=== PATIENT | male | born 1965 | race Hispanic/Latino ===

== ENCOUNTER 2020-07-10 09:21 | Inpatient (IN) | payer OTHER, SELFPAY ==
[2020-07-10 09:41] LABS: BASOPHILS % (AUTO) 0.4 % (0.0-5.0); EOSINOPHILS % (AUTO) 2.1 % (0.0-8.0); HEMATOCRIT 47.2 % (42-54); LYMPHOCYTES % (AUTO) 21.9 % (21.0-51.0); MEAN CORPUSCULAR HEMOGLOBIN 29.3 pg (27.0-33.0); MEAN CORPUSCULAR HGB CONC 32.8 g/dL (32.0-36.0); MEAN CORPUSCULAR VOLUME 89.2 fL (79-99); MONOCYTES % (AUTO) 6.8 % (3.0-13.0); NEUTROPHILS % (AUTO) 68.3 % (40.0-77.0); PLATELET COUNT (AUTO) 233 K/uL (130-400); RED BLOOD CELL COUNT(AUTO) 5.29 MIL/uL (4.50-6.20); RED CELL DISTRIBUTION WIDTH 13.6 % (11.0-15.5); WHITE BLOOD COUNT (AUTO) 9.5 K/uL (4.8-10.8)
[2020-07-10 09:53] LABS: ALBUMIN 3.4 g/dL (3.5-5.0); BILIRUBIN,TOTAL 0.3 mg/dL (0.2-1.0); TOTAL PROTEIN, SERUM 7.4 g/dL (6.0-8.3)
[2020-07-10 09:55] LABS: INR 0.98 (0.85-1.15); PROTHROMBIN TIME 10.7 SEC (9.6-11.6)
[2020-07-10 09:56] LABS: PARTIAL THROMBOPLASTIN TIME 26.5 SEC (26.3-35.5)
[2020-07-10 10:04] LABS: ABG BASE EXCESS 2.6 mmol/L (-2.0-3.0); ABG HCO3 29.5 mmol/L (21.0-28.0); ABG OXYGEN SATURATION 91.5 % (95.0-99.0); ABG PCO2 55 mmHg (35-48)
[2020-07-10 10:13] LABS: B-TYPE NATRIURETIC PEPTIDE 39 pg/mL (0-100)
[2020-07-10] MEDS ORDERED: SOLU-MEDROL 125MG VIAL ONE (11:04)
[2020-07-10] MEDS ORDERED: LEVOFLOXACIN 500 MG/D5W 100 ML 100 ML ONE (11:04)
[2020-07-10] MEDS ORDERED: IPRATROPIUM/ALBUTEROL SULFATE 3 ML SOLUTION IH ONE (11:13)
[2020-07-10] MEDS ORDERED: ACETAMINOPHEN 325 MG TAB PO PRN ×2 (11:30)
[2020-07-10] MEDS ORDERED: LACTULOSE 20 GM/30 ML UDCUP PO PRN (11:30)
[2020-07-10] MEDS ORDERED: ONDANSETRON 4MG INJ IV PRN (11:30)
[2020-07-10] MEDS: SOLU-MEDROL 125MG VIAL IV SCH ×2 (11:30→19:30)
[2020-07-10] MEDS ORDERED: IPRATROPIUM/ALBUTEROL SULFATE 3 ML SOLUTION IH PRN (11:30)
[2020-07-10 11:38] LABS: APPEARANCE,URINE Clear (CLEAR); BILIRUBIN,URINE Negative (NEGATIVE); COLOR,URINE Yellow (YELLOW); GLUCOSE, URINE (UA) Negative (NEGATIVE); KETONES,URINE Negative (NEGATIVE); LEUKOCYTE ESTERASE ,URINE Negative (NEGATIVE); NITRATE,URINE Negative (NEGATIVE); OCCULT BLOOD,URINE Negative (NEGATIVE); PROTEIN,URINE Negative (NEGATIVE); UROBILINOGEN,URINE 0.2 mg/dL (0.2-1.0)
[2020-07-10 11:42] LABS: HEMOGLOBIN A1C 6.3 % (4.0-6.0)
[2020-07-10] MEDS: LEVOFLOXACIN 500 MG/D5W 100 ML 100 ML IV SCH (15:45)
[2020-07-10] MEDS ORDERED: SOLU-MEDROL 40MG VIAL ONE (17:38)
[2020-07-10] MEDS ORDERED: FUROSEMIDE 100MG VIAL IVP STA (18:36)
[2020-07-10] MEDS ORDERED: FUROSEMIDE 20MG VIAL ONE (18:47)
[2020-07-10] MEDS: BUDESONIDE 0.5 MG/2 ML INH IH SCH (20:59)
[2020-07-10] MEDS: FAMOTIDINE 20MG TAB PO SCH (21:00)
[2020-07-10] MEDS: IPRATROPIUM/ALBUTEROL SULFATE 3 ML SOLUTION IH SCH (23:43)
[2020-07-11] MEDS: SOLU-MEDROL 125MG VIAL IV SCH ×2 (03:30→11:51)
[2020-07-11] MEDS ORDERED: SOLU-MEDROL 40MG VIAL ONE (04:27)
[2020-07-11 06:00] VITALS: BP 147/83
[2020-07-11 06:21] LABS: BASOPHILS % (AUTO) 0.1 % (0.0-5.0); HEMATOCRIT 48.8 % (42-54); LYMPHOCYTES % (AUTO) 5.7 % (21.0-51.0); MEAN CORPUSCULAR HEMOGLOBIN 28.6 pg (27.0-33.0); MEAN CORPUSCULAR HGB CONC 32.2 g/dL (32.0-36.0); MEAN CORPUSCULAR VOLUME 89.1 fL (79-99); MONOCYTES % (AUTO) 2.4 % (3.0-13.0); NEUTROPHILS % (AUTO) 91.3 % (40.0-77.0); PLATELET COUNT (AUTO) 270 K/uL (130-400); RED BLOOD CELL COUNT(AUTO) 5.48 MIL/uL (4.50-6.20); RED CELL DISTRIBUTION WIDTH 13.2 % (11.0-15.5); WHITE BLOOD COUNT (AUTO) 17.2 K/uL (4.8-10.8)
[2020-07-11 06:34] LABS: CREATININE 1.1 mg/dL (0.5-1.5); POTASSIUM 4.2 mmol/L (3.5-5.1)
[2020-07-11] MEDS: IPRATROPIUM/ALBUTEROL SULFATE 3 ML SOLUTION IH SCH ×3 (06:34→18:29)
[2020-07-11] MEDS: BUDESONIDE 0.5 MG/2 ML INH IH SCH (06:35)
[2020-07-11] MEDS: INSULIN HUMULIN R 100 UNIT/ML 3ML SQ SCH ×4 (06:42→21:11)
[2020-07-11 07:00] VITALS: BP 128/57
[2020-07-11 07:04] LABS: B-TYPE NATRIURETIC PEPTIDE 20 pg/mL (0-100)
[2020-07-11] MEDS: FAMOTIDINE 20MG TAB PO SCH ×2 (08:53→21:03)
[2020-07-11] MEDS: ENOXAPARIN SODIUM 40 MG/0.4 ML SYRINGE SQ SCH (08:54)
[2020-07-11 11:00] VITALS: BP 117/68
[2020-07-11 15:00] VITALS: BP 128/68
[2020-07-11] MEDS: LEVOFLOXACIN 500 MG/D5W 100 ML 100 ML IV SCH (16:09)
[2020-07-11] MEDS ORDERED: BUDESONIDE 0.5 MG/2 ML INH IH PRN (17:15)
[2020-07-11 20:51] VITALS: BP 139/72
[2020-07-12] VITALS: BP 119/48
[2020-07-12 04:00] VITALS: BP 172/84
[2020-07-12 04:49] LABS: BASOPHILS % (AUTO) 0.1 % (0.0-5.0); HEMATOCRIT 48.1 % (42-54); LYMPHOCYTES % (AUTO) 6.3 % (21.0-51.0); MEAN CORPUSCULAR HEMOGLOBIN 28.6 pg (27.0-33.0); MEAN CORPUSCULAR HGB CONC 31.8 g/dL (32.0-36.0); MEAN CORPUSCULAR VOLUME 89.9 fL (79-99); MONOCYTES % (AUTO) 4.8 % (3.0-13.0); NEUTROPHILS % (AUTO) 88.2 % (40.0-77.0); PLATELET COUNT (AUTO) 263 K/uL (130-400); RED BLOOD CELL COUNT(AUTO) 5.35 MIL/uL (4.50-6.20); RED CELL DISTRIBUTION WIDTH 13.4 % (11.0-15.5); WHITE BLOOD COUNT (AUTO) 20.6 K/uL (4.8-10.8)
[2020-07-12 05:19] LABS: POTASSIUM 4.6 mmol/L (3.5-5.1)
[2020-07-12] MEDS: INSULIN HUMULIN R 100 UNIT/ML 3ML SQ SCH ×4 (06:13→19:52)
[2020-07-12 08:00] VITALS: BP 141/102
[2020-07-12] MEDS: FAMOTIDINE 20MG TAB PO SCH ×2 (08:33→19:53)
[2020-07-12] MEDS: PREDNISONE 20 MG TABLET PO SCH (08:33)
[2020-07-12] MEDS: ENOXAPARIN SODIUM 40 MG/0.4 ML SYRINGE SQ SCH (08:34)
[2020-07-12 11:59] VITALS: BP 124/63
[2020-07-12 16:00] VITALS: BP 136/86
[2020-07-12] MEDS: LEVOFLOXACIN 500 MG/D5W 100 ML 100 ML IV SCH (16:00)
[2020-07-12 20:16] VITALS: BP 99/57
[2020-07-13 00:07] VITALS: BP 102/51
[2020-07-13 04:14] VITALS: BP 144/88
[2020-07-13 05:01] LABS: BASOPHILS % (AUTO) 0.3 % (0.0-5.0); EOSINOPHILS % (AUTO) 0.1 % (0.0-8.0); HEMATOCRIT 48.8 % (42-54); LYMPHOCYTES % (AUTO) 24.1 % (21.0-51.0); MEAN CORPUSCULAR HEMOGLOBIN 29.2 pg (27.0-33.0); MEAN CORPUSCULAR HGB CONC 31.6 g/dL (32.0-36.0); MEAN CORPUSCULAR VOLUME 92.4 fL (79-99); MONOCYTES % (AUTO) 7.7 % (3.0-13.0); NEUTROPHILS % (AUTO) 67.1 % (40.0-77.0); PLATELET COUNT (AUTO) 219 K/uL (130-400); RED BLOOD CELL COUNT(AUTO) 5.28 MIL/uL (4.50-6.20); RED CELL DISTRIBUTION WIDTH 13.6 % (11.0-15.5); WHITE BLOOD COUNT (AUTO) 13.1 K/uL (4.8-10.8)
[2020-07-13 05:09] LABS: POTASSIUM 4.1 mmol/L (3.5-5.1)
[2020-07-13] MEDS: INSULIN HUMULIN R 100 UNIT/ML 3ML SQ SCH ×2 (05:11→11:30)
[2020-07-13] MEDS: FAMOTIDINE 20MG TAB PO SCH (07:55)
[2020-07-13] MEDS: PREDNISONE 20 MG TABLET PO SCH (07:55)
[2020-07-13 08:00] VITALS: BP 135/81
[2020-07-13] MEDS: ENOXAPARIN SODIUM 40 MG/0.4 ML SYRINGE SQ SCH (08:06)
[2020-07-13] MEDS ORDERED: LEVOFLOXACIN 500 MG TABLET PO SCH (09:00)
[2020-07-13] MEDS ORDERED: PRED20B PO (09:36)
[2020-07-13] MEDS ORDERED: BUDE0.5A3 IH (09:36)
[2020-07-13] MEDS ORDERED: LEVO500T90 PO (09:36)
[2020-07-13] MEDS ORDERED: BUDE10.2 IH (09:44)
[2020-07-13] MEDS ORDERED: TIOT4MIS2 IH (09:44)
[2020-07-13 12:00] VITALS: BP 117/72
[2020-07-13] MEDS ORDERED: IPRATROPIUM/ALBUTEROL SULFATE 3 ML SOLUTION IH SCH (12:00)
[2020-07-13 16:00] VITALS: BP 132/71
[2020-07-13] MEDS ORDERED: BUDESONIDE 0.5 MG/2 ML INH IH SCH (18:00)
== END 2020-07-13 16:27 | disposition home or self-care (01) | DRG 190 ==
LOC: EDH 09:21 → OBSVTOIN 09:22 → EDHIP 09:22 → 4CH 07-11 05:40
PROVIDERS: ADMIT Internal Medicine; ATTEND Internal Medicine
PROC: 5A09357 Assistance with Respiratory Ventilation, Less than 24 Consecutive Hours, Continuous Positive Airway Pressure (ICD-10-PCS; principal; 2020-07-11)
PROC: 5A09357 Assistance with Respiratory Ventilation, Less than 24 Consecutive Hours, Continuous Positive Airway Pressure (ICD-10-PCS; 2020-07-12)
PROC: 5A09357 Assistance with Respiratory Ventilation, Less than 24 Consecutive Hours, Continuous Positive Airway Pressure (ICD-10-PCS; 2020-07-13)
DX: J44.1 Chronic obstructive pulmonary disease with (acute) exacerbation (principal); J18.9 Pneumonia, unspecified organism; E66.2 Morbid (severe) obesity with alveolar hypoventilation; E87.2 Acidosis; J98.11 Atelectasis; R06.03 Acute respiratory distress; R09.02 Hypoxemia; E11.9 Type 2 diabetes mellitus without complications; I27.81 Cor pulmonale (chronic); F17.210 Nicotine dependence, cigarettes, uncomplicated; J44.0 Chronic obstructive pulmonary disease with (acute) lower respiratory infection; Y95 Nosocomial condition; Z99.81 Dependence on supplemental oxygen; Z20.822 Contact with and (suspected) exposure to COVID-19; Z88.0 Allergy status to penicillin
CPT/HCPCS: 36415; 36600; 71045; 80048; 80053; 81003; 82550; 82803; 82948; 83036; 83605; 83880; 84145; 84484; 85025; 85610; 85730; 86140; 87040; 87071; 87205; 87426; 87804; 93005; 93306; 93356; 94640; 94660; 94664; 94760; G0378; J1650; J1815; J1940; J1956; J2920; J2930; U0003

== ENCOUNTER 2020-08-22 13:30 | Emergency (ER) | payer SELFPAY ==
[~2020-08-22] VITALS: Ht 177.8 cm; Wt 142.9 kg
[~2020-08-22 13:30] MED LIST: BUDE0.5A3 IH; LEVO500T89 PO; PRED20B PO; TIOT4MIS2 IH
[2020-08-22 13:32] VITALS: BP 107/66
[2020-08-22] MEDS ORDERED: ACETAMINOPHEN 325 MG TAB PO ONE (14:00)
[2020-08-22] MEDS ORDERED: SOLU-MEDROL 125MG/2ML VIAL IVP SCH (14:15)
[2020-08-22 14:56] LABS: BASOPHILS % (AUTO) 0.4 % (0.0-5.0); EOSINOPHILS % (AUTO) 1.3 % (0.0-8.0); LYMPHOCYTES % (AUTO) 25.9 % (21.0-51.0); MEAN CORPUSCULAR HEMOGLOBIN 29.2 pg (27.0-33.0); MEAN CORPUSCULAR HGB CONC 31.5 g/dL (32.0-36.0); MEAN CORPUSCULAR VOLUME 92.6 fL (79-99); MONOCYTES % (AUTO) 8.3 % (3.0-13.0); NEUTROPHILS % (AUTO) 63.6 % (40.0-77.0); PLATELET COUNT (AUTO) 234 K/uL (130-400); RED BLOOD CELL COUNT(AUTO) 4.97 MIL/uL (4.50-6.20); RED CELL DISTRIBUTION WIDTH 14.2 % (11.0-15.5); WHITE BLOOD COUNT (AUTO) 10.9 K/uL (4.8-10.8)
[2020-08-22 15:04] LABS: AMPHET/METH SCREEN,URINE NEGATIVE (NEGATIVE); BARBITURATE SCREEN, URINE NEGATIVE (NEGATIVE); BENZODIAZEPINES SCREEN,URINE NEGATIVE (NEGATIVE); CANNABINOID SCREEN,URINE NEGATIVE (NEGATIVE); COCAINE SCREEN,URINE POSITIVE (NEGATIVE); OPIATE SCREEN,URINE NEGATIVE (NEGATIVE); PHENCYCLIDINE SCREEN,URINE NEGATIVE (NEGATIVE)
[2020-08-22 15:07] LABS: CARBON DIOXIDE 27 mmol/L (21-32); CHLORIDE 106 mmol/L (101-111); GLOMERULAR FILTR. RATE CALC 82 mL/min (>60); GLUCOSE,RANDOM 105 mg/dL (70-105); INR 1.02 (0.85-1.15); POTASSIUM 3.9 mmol/L (3.5-5.1); PROTHROMBIN TIME 11.1 SEC (9.6-11.6); SODIUM SERUM 143 mmol/L (136-145); UREA NITROGEN, BLOOD 15 mg/dL (7-18)
[2020-08-22 15:29] LABS: ALANINE AMINOTRANSFERASE 34 U/L (12-78); ALBUMIN 3.6 g/dL (3.5-5.0); ASPARTATE AMINOTRANSFERASE 20 U/L (10-37); BILIRUBIN,TOTAL 0.3 mg/dL (0.2-1.0); CREATINE KINASE, TOTAL 115 U/L (21-232); MYOGLOBIN 33 ng/mL (10-92); TOTAL PROTEIN, SERUM 7.5 g/dL (6.0-8.3); TROPONIN I < 0.04 ng/mL (0.00-0.06)
[2020-08-22] MEDS ORDERED: CODE10LI PO (16:41)
[2020-08-22] MEDS ORDERED: BUDE10.2 IH (16:41)
[2020-08-22] MEDS ORDERED: PSEU-221 PO (16:41)
[2020-08-22 16:53] VITALS: BP 112/74
[2020-08-22] MEDS ORDERED: LEVO750T46 PO (16:53)
== END 2020-08-22 17:01 | disposition home or self-care (01) ==
LOC: EDH 13:30 → MERGE 13:30 → EDH 17:01
DX: J44.1 Chronic obstructive pulmonary disease with (acute) exacerbation (principal); Z20.822 Contact with and (suspected) exposure to COVID-19; E66.01 Morbid (severe) obesity due to excess calories; F14.10 Cocaine abuse, uncomplicated; Z88.0 Allergy status to penicillin; F17.210 Nicotine dependence, cigarettes, uncomplicated; Z79.51 Long term (current) use of inhaled steroids; Z79.52 Long term (current) use of systemic steroids; Z68.42 Body mass index [BMI] 45.0-49.9, adult
CPT/HCPCS: 36415; 71045; 73030; 80053; 80305; 82550; 83735; 83874; 83880; 84484; 85025; 85378; 85610; 87635; 87804 ×2; 87880; 93005; 96374; 99285; C9803; J2930

== ENCOUNTER 2020-09-05 09:23 | Emergency (ER) | payer OTHER, SELFPAY ==
[~2020-09-05] VITALS: Ht 177.8 cm; Wt 142.9 kg
[~2020-09-05 09:23] MED LIST changes: +BUDE10.2 IH; +CODE10LI PO; +LEVO750T46 PO; +PSEU-221 PO
[2020-09-05 09:25] VITALS: BP 130/58
[2020-09-05 10:30] LABS: BASOPHILS % (AUTO) 0.4 % (0.0-5.0); EOSINOPHILS % (AUTO) 1.8 % (0.0-8.0); HEMATOCRIT 45.9 % (42-54); LYMPHOCYTES % (AUTO) 21.7 % (21.0-51.0); MEAN CORPUSCULAR HEMOGLOBIN 28.9 pg (27.0-33.0); MEAN CORPUSCULAR HGB CONC 31.4 g/dL (32.0-36.0); MONOCYTES % (AUTO) 7.5 % (3.0-13.0); NEUTROPHILS % (AUTO) 68.1 % (40.0-77.0); PLATELET COUNT (AUTO) 222 K/uL (130-400); RED BLOOD CELL COUNT(AUTO) 4.99 MIL/uL (4.50-6.20); RED CELL DISTRIBUTION WIDTH 14.2 % (11.0-15.5)
[2020-09-05] MEDS ORDERED: IPRATROPIUM/ALBUTEROL SULFATE 3 ML SOLUTION IH SCH (10:30)
[2020-09-05] MEDS ORDERED: SOLU-MEDROL 125MG VIAL IVP SCH (10:30)
[2020-09-05 10:51] LABS: ALANINE AMINOTRANSFERASE 35 U/L (12-78); ALBUMIN 3.5 g/dL (3.5-5.0); ASPARTATE AMINOTRANSFERASE 19 U/L (10-37); BILIRUBIN,TOTAL 0.2 mg/dL (0.2-1.0); CARBON DIOXIDE 31 mmol/L (21-32); CHLORIDE 106 mmol/L (101-111); CREATINE KINASE, TOTAL 75 U/L (21-232); CREATININE 0.8 mg/dL (0.5-1.5); GLOMERULAR FILTR. RATE CALC 106 mL/min (>60); GLUCOSE,RANDOM 96 mg/dL (70-105); MYOGLOBIN 25 ng/mL (10-92); POTASSIUM 4.2 mmol/L (3.5-5.1); SODIUM SERUM 143 mmol/L (136-145); TOTAL PROTEIN, SERUM 7.3 g/dL (6.0-8.3); TROPONIN I < 0.04 ng/mL (0.00-0.06); UREA NITROGEN, BLOOD 15 mg/dL (7-18)
[2020-09-05 11:00] VITALS: BP 113/72
[2020-09-05 11:03] LABS: B-TYPE NATRIURETIC PEPTIDE 30 pg/mL (0-100)
[2020-09-05 11:06] LABS: ABG BASE EXCESS -0.7 mmol/L (-2.0-3.0); ABG HCO3 25.9 mmol/L (21.0-28.0); ABG OXYGEN SATURATION 89.6 % (95.0-99.0); ABG PCO2 50 mmHg (35-48)
[2020-09-05] MEDS ORDERED: IPRATROPIUM/ALBUTEROL SULFATE 3 ML SOLUTION IH ONE ×2 (12:45→13:45)
[2020-09-05] MEDS ORDERED: PRED20TA3 PO (12:58)
[2020-09-05] MEDS ORDERED: ALBU2.5V2 IH (12:58)
[2020-09-05 13:17] VITALS: BP 112/78
== END 2020-09-05 13:19 | disposition home or self-care (01) ==
LOC: EDH 09:23
DX: J44.1 Chronic obstructive pulmonary disease with (acute) exacerbation (principal); Z20.822 Contact with and (suspected) exposure to COVID-19; F17.210 Nicotine dependence, cigarettes, uncomplicated; Z88.0 Allergy status to penicillin; Z79.899 Other long term (current) drug therapy; Z79.52 Long term (current) use of systemic steroids; Z79.51 Long term (current) use of inhaled steroids
CPT/HCPCS: 36415; 36600; 71045; 80053; 82550; 82803; 83874; 83880; 84484; 85025; 87635; 93005; 94640 ×2; 96374; 99285; C9803; J2930

== ENCOUNTER 2020-11-29 12:20 | Inpatient (IN) | payer OTHER ==
[2020-11-29] VITALS (8 sets, daily range): BP systolic 107–151; BP diastolic 66–91
[~2020-11-29] VITALS: Ht 177.8 cm; Wt 149.3 kg
[~2020-11-29 12:20] MED LIST changes: +ALBU2.5V2 IH; +PRED20TA3 PO
[2020-11-29 12:33] LABS: ABG BASE EXCESS 3.2 mmol/L (-2.0-3.0); ABG HCO3 30.6 mmol/L (21.0-28.0); ABG PCO2 58 mmHg (35-48)
[2020-11-29 12:42] LABS: BASOPHILS % (AUTO) 0.4 % (0.0-5.0); EOSINOPHILS % (AUTO) 1.5 % (0.0-8.0); HEMATOCRIT 48.6 % (42-54); LYMPHOCYTES % (AUTO) 17.1 % (21.0-51.0); MEAN CORPUSCULAR HEMOGLOBIN 28.7 pg (27.0-33.0); MEAN CORPUSCULAR HGB CONC 31.1 g/dL (32.0-36.0); MEAN CORPUSCULAR VOLUME 92.4 fL (79-99); MONOCYTES % (AUTO) 8.3 % (3.0-13.0); NEUTROPHILS % (AUTO) 72.3 % (40.0-77.0); PLATELET COUNT (AUTO) 220 K/uL (130-400); RED BLOOD CELL COUNT(AUTO) 5.26 MIL/uL (4.50-6.20); RED CELL DISTRIBUTION WIDTH 13.8 % (11.0-15.5); WHITE BLOOD COUNT (AUTO) 11.7 K/uL (4.8-10.8)
[2020-11-29 12:59] LABS: B-TYPE NATRIURETIC PEPTIDE 13 pg/mL (0-100)
[2020-11-29] MEDS ORDERED: IPRATROPIUM/ALBUTEROL SULFATE 3 ML SOLUTION IH ONE (13:00)
[2020-11-29] MEDS ORDERED: ALBUTEROL 0.083% 2.5 MG/3 ML INH IH ONE (13:00)
[2020-11-29] MEDS ORDERED: SOLU-MEDROL 125MG VIAL IVP ONE (13:00)
[2020-11-29 13:10] LABS: ALBUMIN 3.4 g/dL (3.5-5.0); BILIRUBIN,TOTAL 0.3 mg/dL (0.2-1.0); CREATININE 0.8 mg/dL (0.5-1.5); POTASSIUM 4.1 mmol/L (3.5-5.1); TOTAL PROTEIN, SERUM 7.4 g/dL (6.0-8.3)
[2020-11-29] MEDS ORDERED: ACETAMINOPHEN 325 MG TAB PO PRN (14:00)
[2020-11-29] MEDS ORDERED: ONDANSETRON 4MG INJ IV PRN (14:00)
[2020-11-29] MEDS ORDERED: HYDRALAZINE 20MG/ML VIAL IV PRN (14:00)
[2020-11-29] MEDS ORDERED: LACTULOSE 20 GM/30 ML UDCUP PO PRN (14:00)
[2020-11-29] MEDS ORDERED: CEFTRIAXONE 1G VIAL IVP SCH (14:00)
[2020-11-29] MEDS ORDERED: 0.9%NACL 50ML 50 ML IV ONE (14:29)
[2020-11-29] MEDS ORDERED: LEVOFLOXACIN 500 MG/D5W 100 ML 100 ML IV SCH (14:30)
[2020-11-29 15:31] LABS: ABG BASE EXCESS 1.8 mmol/L (-2.0-3.0); ABG HCO3 31.5 mmol/L (21.0-28.0); ABG PCO2 72 mmHg (35-48)
[2020-11-29] MEDS ORDERED: INSULIN HUMULIN R 100 UNIT/ML 3ML SQ SCH (17:00)
[2020-11-29 17:27] LABS: ALCOHOL, BLOOD < 3 mg/dL (0-10); SALICYLATE 2.9 mg/dL (2.8-20.0)
[2020-11-29] MEDS: NICOTINE 21 MG/ 24 HR PATCH TD SCH (17:45)
[2020-11-29] MEDS ORDERED: SOLU-MEDROL 125MG VIAL IV SCH (18:00)
[2020-11-29] MEDS ORDERED: ALBUTEROL 0.083% 2.5 MG/3 ML INH IH SCH (18:00)
[2020-11-29 18:39] LABS: APPEARANCE,URINE Clear (CLEAR); BILIRUBIN,URINE Negative (NEGATIVE); COLOR,URINE Yellow (YELLOW); GLUCOSE, URINE (UA) Negative (NEGATIVE); KETONES,URINE Negative (NEGATIVE); LEUKOCYTE ESTERASE ,URINE Trace (NEGATIVE); NITRATE,URINE Negative (NEGATIVE); OCCULT BLOOD,URINE Negative (NEGATIVE); PROTEIN,URINE POS 1+ mg/dL (NEGATIVE)
[2020-11-29 18:46] LABS: AMPHET/METH SCREEN,URINE NEGATIVE (NEGATIVE); BARBITURATE SCREEN, URINE NEGATIVE (NEGATIVE); BENZODIAZEPINES SCREEN,URINE NEGATIVE (NEGATIVE); CANNABINOID SCREEN,URINE NEGATIVE (NEGATIVE); COCAINE SCREEN,URINE POSITIVE (NEGATIVE); OPIATE SCREEN,URINE NEGATIVE (NEGATIVE); PHENCYCLIDINE SCREEN,URINE NEGATIVE (NEGATIVE)
[2020-11-29 18:59] LABS: BACTERIA,URINE None Seen /HPF (None Seen); RBC,URINE None Seen /HPF (0-1); SQUAMOUS EPITHELIAL CELL,UR None Seen /HPF (0-2); WBC,URINE 0-1 /HPF (0-1)
[2020-11-29] MEDS: BUDESONIDE 0.5 MG/2 ML INH IH SCH (18:59)
[2020-11-29] MEDS: IPRATROPIUM/ALBUTEROL SULFATE 3 ML SOLUTION IH SCH ×2 (19:06→22:20)
[2020-11-29] MEDS: SOLU-MEDROL 40MG VIAL IVP SCH (19:30)
[2020-11-29] MEDS: INSULIN HUMULIN R 100 UNIT/ML 3ML SQ SCH (20:24)
[2020-11-29] MEDS: FAMOTIDINE 20MG VIAL IV SCH (20:40)
[2020-11-29] MEDS: FUROSEMIDE 20MG VIAL IV SCH (20:40)
[2020-11-29] MEDS: LACTULOSE 20 GM/30 ML UDCUP PO SCH (22:30)
[2020-11-30 01:42] VITALS: BP 131/82
[2020-11-30 03:36] LABS: ABG BASE EXCESS 2.1 mmol/L (-2.0-3.0); ABG HCO3 28.2 mmol/L (21.0-28.0); ABG OXYGEN SATURATION 91.8 % (95.0-99.0); ABG PCO2 50 mmHg (35-48)
[2020-11-30] MEDS: SOLU-MEDROL 40MG VIAL IVP SCH (06:50)
[2020-11-30] MEDS: IPRATROPIUM/ALBUTEROL SULFATE 3 ML SOLUTION IH SCH ×3 (07:30→18:54)
[2020-11-30] MEDS: INSULIN HUMULIN R 100 UNIT/ML 3ML SQ SCH ×4 (07:30→21:00)
[2020-11-30] MEDS: BUDESONIDE 0.5 MG/2 ML INH IH SCH ×2 (07:30→20:02)
[2020-11-30] MEDS: RIFAXIMIN 550 MG TABLET PO SCH ×3 (07:56→22:12)
[2020-11-30 08:02] VITALS: BP 127/75
[2020-11-30 08:25] LABS: BASOPHILS % (AUTO) 0.1 % (0.0-5.0); HEMATOCRIT 49.4 % (42-54); LYMPHOCYTES % (AUTO) 6.9 % (21.0-51.0); MEAN CORPUSCULAR HEMOGLOBIN 28.9 pg (27.0-33.0); MEAN CORPUSCULAR VOLUME 90.3 fL (79-99); NEUTROPHILS % (AUTO) 89.5 % (40.0-77.0); PLATELET COUNT (AUTO) 246 K/uL (130-400); RED BLOOD CELL COUNT(AUTO) 5.47 MIL/uL (4.50-6.20); RED CELL DISTRIBUTION WIDTH 13.4 % (11.0-15.5); WHITE BLOOD COUNT (AUTO) 14.4 K/uL (4.8-10.8)
[2020-11-30 08:33] LABS: INR 1.01 (0.85-1.15)
[2020-11-30 08:35] LABS: PARTIAL THROMBOPLASTIN TIME 24.5 SEC (26.3-35.5)
[2020-11-30 08:37] LABS: CREATININE 0.9 mg/dL (0.5-1.5); MAGNESIUM 2.1 mg/dL (1.80-2.40); POTASSIUM 4.3 mmol/L (3.5-5.1)
[2020-11-30] MEDS: LACTULOSE 20 GM/30 ML UDCUP PO SCH ×2 (09:00→22:12)
[2020-11-30] MEDS: FAMOTIDINE 20MG VIAL IV SCH ×2 (09:40→22:12)
[2020-11-30] MEDS: FUROSEMIDE 20MG VIAL IV SCH (09:40)
[2020-11-30] MEDS: NICOTINE 21 MG/ 24 HR PATCH TD SCH (09:41)
[2020-11-30] MEDS: ENOXAPARIN SODIUM 40 MG/0.4 ML SYRINGE SQ SCH (09:42)
[2020-11-30 11:00] VITALS: BP 138/86
[2020-11-30] MEDS ORDERED: FOLIC ACID 1 MG TABLET PO SCH (13:30)
[2020-11-30] MEDS ORDERED: THIAMINE HCL 100 MG TABLET PO SCH (13:30)
[2020-11-30] MEDS: THIAMINE HCL 100 MG TABLET PO SCH (13:45)
[2020-11-30] MEDS: FOLIC ACID 1 MG TABLET PO SCH (13:45)
[2020-11-30] MEDS: LEVOFLOXACIN 500 MG TABLET PO SCH (16:38)
[2020-11-30] MEDS ORDERED: CLOPIDOGREL 300MG TAB ONE (16:47)
[2020-11-30] MEDS ORDERED: HEPARIN 5,000 UNIT VIAL ONE ×2 (16:47→16:48)
[2020-11-30] MEDS ORDERED: NITROGLYCERIN 1GM OINT 1 INCH/1GM TD ONE (16:47)
[2020-11-30 22:37] VITALS: BP 121/76
[2020-12-01] VITALS (10 sets, daily range): BP systolic 108–151; BP diastolic 58–87
[2020-12-01] MEDS: IPRATROPIUM/ALBUTEROL SULFATE 3 ML SOLUTION IH SCH ×5 (00:34→23:37)
[2020-12-01] MEDS: BUDESONIDE 0.5 MG/2 ML INH IH SCH ×2 (06:00→19:21)
[2020-12-01] MEDS: INSULIN HUMULIN R 100 UNIT/ML 3ML SQ SCH ×4 (06:50→20:41)
[2020-12-01 07:19] LABS: BASOPHILS % (AUTO) 0.3 % (0.0-5.0); EOSINOPHILS % (AUTO) 0.1 % (0.0-8.0); HEMATOCRIT 51.4 % (42-54); LYMPHOCYTES % (AUTO) 19.6 % (21.0-51.0); MEAN CORPUSCULAR HEMOGLOBIN 28.6 pg (27.0-33.0); MEAN CORPUSCULAR HGB CONC 30.9 g/dL (32.0-36.0); MEAN CORPUSCULAR VOLUME 92.6 fL (79-99); MONOCYTES % (AUTO) 5.3 % (3.0-13.0); NEUTROPHILS % (AUTO) 74.4 % (40.0-77.0); PLATELET COUNT (AUTO) 238 K/uL (130-400); RED BLOOD CELL COUNT(AUTO) 5.55 MIL/uL (4.50-6.20); RED CELL DISTRIBUTION WIDTH 13.7 % (11.0-15.5); WHITE BLOOD COUNT (AUTO) 14.3 K/uL (4.8-10.8)
[2020-12-01 07:27] LABS: MAGNESIUM 2.3 mg/dL (1.80-2.40); POTASSIUM 4.1 mmol/L (3.5-5.1)
[2020-12-01] MEDS: FOLIC ACID 1 MG TABLET PO SCH (10:13)
[2020-12-01] MEDS: RIFAXIMIN 550 MG TABLET PO SCH ×2 (10:13→20:38)
[2020-12-01] MEDS: NICOTINE 21 MG/ 24 HR PATCH TD SCH (10:13)
[2020-12-01] MEDS: THIAMINE HCL 100 MG TABLET PO SCH (10:13)
[2020-12-01] MEDS: ENOXAPARIN SODIUM 40 MG/0.4 ML SYRINGE SQ SCH (10:14)
[2020-12-01] MEDS: FAMOTIDINE 20MG VIAL IV SCH ×2 (10:14→20:38)
[2020-12-01] MEDS: LACTULOSE 20 GM/30 ML UDCUP PO SCH ×2 (10:14→20:38)
[2020-12-01] MEDS: LEVOFLOXACIN 500 MG TABLET PO SCH (10:14)
[2020-12-01] MEDS: TRAMADOL HCL 50 MG TABLET PO PRN ×2 (10:45→20:40)
[2020-12-01] MEDS ORDERED: TRAMADOL HCL 50 MG TABLET PO PRN (11:00)
[2020-12-02 03:50] VITALS: BP 117/68
[2020-12-02 06:16] LABS: BASOPHILS % (AUTO) 0.4 % (0.0-5.0); HEMATOCRIT 46.6 % (42-54); LYMPHOCYTES % (AUTO) 21.6 % (21.0-51.0); MEAN CORPUSCULAR HEMOGLOBIN 29.1 pg (27.0-33.0); MEAN CORPUSCULAR HGB CONC 31.5 g/dL (32.0-36.0); MEAN CORPUSCULAR VOLUME 92.1 fL (79-99); MONOCYTES % (AUTO) 7.4 % (3.0-13.0); NEUTROPHILS % (AUTO) 69.2 % (40.0-77.0); PLATELET COUNT (AUTO) 222 K/uL (130-400); RED BLOOD CELL COUNT(AUTO) 5.06 MIL/uL (4.50-6.20); RED CELL DISTRIBUTION WIDTH 14.2 % (11.0-15.5); WHITE BLOOD COUNT (AUTO) 10.4 K/uL (4.8-10.8)
[2020-12-02 06:48] LABS: POTASSIUM 4.1 mmol/L (3.5-5.1)
[2020-12-02] MEDS: INSULIN HUMULIN R 100 UNIT/ML 3ML SQ SCH ×3 (07:04→16:30)
[2020-12-02] MEDS: BUDESONIDE 0.5 MG/2 ML INH IH SCH (07:19)
[2020-12-02] MEDS: IPRATROPIUM/ALBUTEROL SULFATE 3 ML SOLUTION IH SCH ×2 (07:19→12:01)
[2020-12-02 07:45] VITALS: BP 92/63
[2020-12-02] MEDS: LACTULOSE 20 GM/30 ML UDCUP PO SCH (09:11)
[2020-12-02] MEDS: ENOXAPARIN SODIUM 40 MG/0.4 ML SYRINGE SQ SCH (09:11)
[2020-12-02] MEDS: FOLIC ACID 1 MG TABLET PO SCH (09:12)
[2020-12-02] MEDS: THIAMINE HCL 100 MG TABLET PO SCH (09:12)
[2020-12-02] MEDS: LEVOFLOXACIN 500 MG TABLET PO SCH (09:12)
[2020-12-02] MEDS: FAMOTIDINE 20MG VIAL IV SCH (09:12)
[2020-12-02] MEDS: NICOTINE 21 MG/ 24 HR PATCH TD SCH (09:12)
[2020-12-02] MEDS: RIFAXIMIN 550 MG TABLET PO SCH (09:16)
[2020-12-02 11:35] VITALS: BP 145/87
[2020-12-02 15:35] VITALS: BP 110/55
[2020-12-02] MEDS ORDERED: FLUT1BLS3 IH (15:59)
[2020-12-02] MEDS ORDERED: ALBU8.5H8 IH (15:59)
[2020-12-02] MEDS ORDERED: LEVO750T46 PO (17:42)
[2020-12-02] MEDS ORDERED: ALBU1.252 IH (17:42)
== END 2020-12-02 18:37 | disposition home or self-care (01) | DRG 140 ==
LOC: EDH 12:20 → EDHIP 13:49 → 4CH 12-01 09:06
PROVIDERS: ADMIT Internal Medicine; ATTEND Internal Medicine
PROC: 5A09357 Assistance with Respiratory Ventilation, Less than 24 Consecutive Hours, Continuous Positive Airway Pressure (ICD-10-PCS; principal; 2020-11-29)
PROC: 5A09357 Assistance with Respiratory Ventilation, Less than 24 Consecutive Hours, Continuous Positive Airway Pressure (ICD-10-PCS; 2020-11-30)
PROC: 5A09357 Assistance with Respiratory Ventilation, Less than 24 Consecutive Hours, Continuous Positive Airway Pressure (ICD-10-PCS; 2020-12-01)
PROC: 5A09357 Assistance with Respiratory Ventilation, Less than 24 Consecutive Hours, Continuous Positive Airway Pressure (ICD-10-PCS; 2020-12-02)
DX: J44.1 Chronic obstructive pulmonary disease with (acute) exacerbation (principal); J96.21 Acute and chronic respiratory failure with hypoxia; G93.40 Encephalopathy, unspecified; I27.81 Cor pulmonale (chronic); Z68.42 Body mass index [BMI] 45.0-49.9, adult; E66.2 Morbid (severe) obesity with alveolar hypoventilation; T85.618A Breakdown (mechanical) of other specified internal prosthetic devices, implants and grafts, initial encounter; J98.11 Atelectasis; Z20.822 Contact with and (suspected) exposure to COVID-19; J96.22 Acute and chronic respiratory failure with hypercapnia; F17.210 Nicotine dependence, cigarettes, uncomplicated; Z91.19 Patient's noncompliance with other medical treatment and regimen; Z88.0 Allergy status to penicillin; Z83.3 Family history of diabetes mellitus; Z82.49 Family history of ischemic heart disease and other diseases of the circulatory system; Y82.8 Other medical devices associated with adverse incidents; Y92.89 Other specified places as the place of occurrence of the external cause; Y83.8 Other surgical procedures as the cause of abnormal reaction of the patient, or of later complication, without mention of misadventure at the time of the procedure
CPT/HCPCS: 36415; 36600; 71045; 73030; 73620; 76705; 80048; 80053; 80305; 81001; 82140; 82435; 82803; 82947; 82948; 83605; 83735; 83880; 84132; 84145; 84295; 84484; 85018; 85025; 85378; 85610; 85730; 86140; 87040; 87635; 87804; 87880; 93005; 94640; 94660; 94664; C9803; G0378; G0481; J0360; J0696; J1644; J1650; J1815; J1940; J1956; J2920; J2930; J3490

== ENCOUNTER 2021-06-14 11:57 | Emergency (ER) | payer OTHER ==
[~2021-06-14] VITALS: Ht 177.8 cm; Wt 142.9 kg
[~2021-06-14 11:57] MED LIST changes: +ALBU1.252 IH; -ALBU2.5V2 IH; +ALBU8.5H8 IH; -BUDE0.5A3 IH; -BUDE10.2 IH; -CODE10LI PO; +FLUT1BLS3 IH; -LEVO500T89 PO; -PRED20B PO; -PRED20TA3 PO; -PSEU-221 PO; -TIOT4MIS2 IH
[2021-06-14 12:24] LABS: BASOPHILS % (AUTO) 0.3 % (0.0-5.0); EOSINOPHILS % (AUTO) 1.1 % (0.0-8.0); HEMATOCRIT 48.4 % (42-54); LYMPHOCYTES % (AUTO) 18.9 % (21.0-51.0); MEAN CORPUSCULAR HEMOGLOBIN 28.8 pg (27.0-33.0); NEUTROPHILS % (AUTO) 72.4 % (40.0-77.0); PLATELET COUNT (AUTO) 264 K/uL (130-400); RED BLOOD CELL COUNT(AUTO) 5.38 MIL/uL (4.50-6.20); RED CELL DISTRIBUTION WIDTH 13.3 % (11.0-15.5); WHITE BLOOD COUNT (AUTO) 11.8 K/uL (4.8-10.8)
[2021-06-14] MEDS ORDERED: IPRATROPIUM/ALBUTEROL SULFATE 3 ML SOLUTION IH ONE (12:30)
[2021-06-14 12:40] LABS: POTASSIUM 3.8 mmol/L (3.5-5.1)
[2021-06-14 12:43] LABS: B-TYPE NATRIURETIC PEPTIDE 37 pg/mL (0-100)
[2021-06-14 12:47] LABS: ALBUMIN 3.3 g/dL (3.5-5.0); BILIRUBIN,TOTAL 0.3 mg/dL (0.2-1.0)
[2021-06-14] MEDS ORDERED: PRED20TA3 PO (13:55)
[2021-06-14] MEDS ORDERED: DOXY-336 PO (13:55)
[2021-06-14 13:56] VITALS: BP 120/71
[2021-06-14] MEDS ORDERED: SOLU-MEDROL 125MG VIAL IVP SCH (14:00)
[2021-06-14] MEDS ORDERED: DOXYCYCLINE HYCLATE 100 MG TABLET PO SCH (14:00)
== END 2021-06-14 14:31 | disposition home or self-care (01) ==
LOC: EDH 11:57
DX: J44.1 Chronic obstructive pulmonary disease with (acute) exacerbation (principal); Z20.822 Contact with and (suspected) exposure to COVID-19; F17.210 Nicotine dependence, cigarettes, uncomplicated; G47.30 Sleep apnea, unspecified; E66.9 Obesity, unspecified; Z88.0 Allergy status to penicillin; Z79.52 Long term (current) use of systemic steroids; Z68.42 Body mass index [BMI] 45.0-49.9, adult
CPT/HCPCS: 36415; 71045; 80053; 83880; 84484; 85025; 87635; 87804 ×2; 93005; 94640; 96374; 99285; C9803; J2930

== ENCOUNTER 2021-11-10 01:29 | Emergency (ER) | payer OTHER ==
[~2021-11-10] VITALS: Ht 177.8 cm; Wt 154.2 kg
[~2021-11-10 01:29] MED LIST changes: +DOXY-336 PO; -LEVO750T46 PO; +LEVO750T68 PO; +PRED20TA3 PO
[2021-11-10] MEDS ORDERED: DIPH,PERTUSS(ACELL),TET VAC/PF 0.5 ML VIAL IM ONE (02:00)
[2021-11-10] MEDS ORDERED: TETANUS/DIPHTHERIA TOXOID [ADULT] 0.5 ML VIAL IM ONE (02:14)
[2021-11-10] MEDS ORDERED: CLIN-141 PO (02:40)
[2021-11-10 03:00] VITALS: BP 132/58
== END 2021-11-10 03:32 | disposition home or self-care (01) ==
LOC: EDH 01:29
DX: S01.511A Laceration without foreign body of lip, initial encounter (principal); S40.011A Contusion of right shoulder, initial encounter; F41.9 Anxiety disorder, unspecified; F32.A Depression, unspecified; G47.30 Sleep apnea, unspecified; Z79.52 Long term (current) use of systemic steroids; Z88.0 Allergy status to penicillin; W06.XXXA Fall from bed, initial encounter; Y93.89 Activity, other specified; Y92.89 Other specified places as the place of occurrence of the external cause; Y99.8 Other external cause status
CPT/HCPCS: 12011; 73030; 90471; 90714; 90715

== ENCOUNTER 2022-01-29 11:05 | Emergency (ER) | payer OTHER ==
[~2022-01-29] VITALS: Ht 177.8 cm; Wt 142.9 kg
[~2022-01-29 11:05] MED LIST changes: +CLIN-141 PO; -DOXY-336 PO; +DOXY-469 PO
[2022-01-29] MEDS ORDERED: 0.9% NACL 500ML IV.SOLN 500 ML IV ONE (11:30)
[2022-01-29] MEDS ORDERED: IPRATROPIUM/ALBUTEROL SULFATE 3 ML SOLUTION IH ONE ×2 (11:30)
[2022-01-29 11:58] LABS: BASOPHILS % (AUTO) 0.5 % (0.0-5.0); EOSINOPHILS % (AUTO) 2.7 % (0.0-8.0); HEMATOCRIT 45.2 % (42-54); LYMPHOCYTES % (AUTO) 22.1 % (21.0-51.0); MEAN CORPUSCULAR HEMOGLOBIN 27.9 pg (27.0-33.0); MEAN CORPUSCULAR HGB CONC 31.9 g/dL (32.0-36.0); MEAN CORPUSCULAR VOLUME 87.6 fL (79-99); MONOCYTES % (AUTO) 5.7 % (3.0-13.0); NEUTROPHILS % (AUTO) 68.7 % (40.0-77.0); PLATELET COUNT (AUTO) 218 K/uL (130-400); RED BLOOD CELL COUNT(AUTO) 5.16 MIL/uL (4.50-6.20); RED CELL DISTRIBUTION WIDTH 13.5 % (11.0-15.5); WHITE BLOOD COUNT (AUTO) 7.9 K/uL (4.8-10.8)
[2022-01-29 12:09] LABS: CREATININE 0.9 mg/dL (0.5-1.5); POTASSIUM 4.3 mmol/L (3.5-5.1)
[2022-01-29 12:14] LABS: ALBUMIN 3.3 g/dL (3.5-5.0); TOTAL PROTEIN, SERUM 7.3 g/dL (6.0-8.3)
[2022-01-29 12:18] LABS: B-TYPE NATRIURETIC PEPTIDE 31 pg/mL (0-100)
[2022-01-29 12:42] LABS: APPEARANCE,URINE CLEAR (CLEAR); BILIRUBIN,URINE NEGATIVE (NEGATIVE); COLOR,URINE COLORLESS (YELLOW); GLUCOSE, URINE (UA) NEGATIVE (NEGATIVE); KETONES,URINE NEGATIVE (NEGATIVE); LEUKOCYTE ESTERASE ,URINE NEGATIVE Leu/uL (NEGATIVE); NITRATE,URINE NEGATIVE (NEGATIVE); OCCULT BLOOD,URINE NEGATIVE (NEGATIVE); PH,URINE 7.5 (5.0-8.0); PROTEIN,URINE NEGATIVE (NEGATIVE); UROBILINOGEN,URINE 0.2 mg/dL (0.2-1.0)
[2022-01-29] MEDS ORDERED: SOLU-MEDROL 125MG VIAL IVP ONE (13:00)
[2022-01-29 13:16] VITALS: BP 127/77
[2022-01-29] MEDS ORDERED: PRED20TA3 PO (14:00)
[2022-01-29] MEDS ORDERED: ACET-66 PO (14:00)
[2022-01-29] MEDS ORDERED: GUAIF10 PO (14:00)
[2022-01-29] MEDS ORDERED: ALBU90AE2 IH (14:00)
[2022-01-29] MEDS ORDERED: OSEL75 PO (14:00)
[2022-01-29] MEDS ORDERED: AUD IH (14:00)
== END 2022-01-29 14:07 | disposition home or self-care (01) ==
LOC: EDH 11:05
DX: J10.1 Influenza due to other identified influenza virus with other respiratory manifestations (principal); J44.1 Chronic obstructive pulmonary disease with (acute) exacerbation; Z20.822 Contact with and (suspected) exposure to COVID-19; G47.30 Sleep apnea, unspecified; Z79.52 Long term (current) use of systemic steroids; Z88.0 Allergy status to penicillin
CPT/HCPCS: 99285; 71045; 96374; 96361; 87635; 84484; 80053; 83880; 85025; 87804 ×2; 81003; 36415; 93005; 94640 ×2; C9803; J2930

== ENCOUNTER 2022-05-15 08:41 | Inpatient (IN) | payer MEDICAID, MEDICARE, OTHER ==
[~2022-05-15] VITALS: Ht 177.8 cm; Wt 146.3 kg
[~2022-05-15 08:41] MED LIST changes: -ALBU1.252 IH; +ALBU6.7H14 IH; -ALBU8.5H8 IH; +AZIT500T4 PO; -CLIN-141 PO; -DOXY-469 PO; +ESCI-8 PO; -FLUT1BLS3 IH; +FURO20TA4 PO; -LEVO750T68 PO; +LISI20TA24 PO; -PRED20TA3 PO
[2022-05-15 08:58] LABS: ABG BASE EXCESS -0.3 mmol/L (-2.0-3.0); ABG HCO3 26.3 mmol/L (21.0-28.0); ABG OXYGEN SATURATION 88.2 % (95.0-99.0); ABG PCO2 51 mmHg (35-48)
[2022-05-15 09:27] LABS: BASOPHILS % (AUTO) 0.4 % (0.0-5.0); HEMATOCRIT 47.2 % (42-54); LYMPHOCYTES % (AUTO) 18.9 % (21.0-51.0); MEAN CORPUSCULAR HGB CONC 31.6 g/dL (32.0-36.0); MEAN CORPUSCULAR VOLUME 88.7 fL (79-99); MONOCYTES % (AUTO) 7.8 % (3.0-13.0); NEUTROPHILS % (AUTO) 70.5 % (40.0-77.0); PLATELET COUNT (AUTO) 247 K/uL (130-400); RED BLOOD CELL COUNT(AUTO) 5.32 MIL/uL (4.50-6.20); RED CELL DISTRIBUTION WIDTH 14.4 % (11.0-15.5); WHITE BLOOD COUNT (AUTO) 10.1 K/uL (4.8-10.8)
[2022-05-15] MEDS ORDERED: SOLU-MEDROL 125MG VIAL IVP ONE (09:30)
[2022-05-15] MEDS ORDERED: IPRATROPIUM/ALBUTEROL SULFATE 3 ML SOLUTION IH ONE (09:30)
[2022-05-15] MEDS ORDERED: ALBUTEROL 0.042% 1.25MG/3ML IH ONE ×5 (09:36→23:20)
[2022-05-15] MEDS ORDERED: IPRATROPIUM 0.5 MG/2.5 ML INH IH ONE (09:36)
[2022-05-15 09:43] LABS: CREATININE 0.8 mg/dL (0.5-1.5); POTASSIUM 4.4 mmol/L (3.5-5.1)
[2022-05-15 09:47] LABS: ALBUMIN 3.5 g/dL (3.5-5.0); TOTAL PROTEIN, SERUM 7.5 g/dL (6.0-8.3)
[2022-05-15] MEDS ORDERED: IBUP-1493 PO (10:50)
[2022-05-15] MEDS ORDERED: ALBU90AE2 IH (10:50)
[2022-05-15] MEDS ORDERED: MODA200T48 PO (11:17)
[2022-05-15 17:24] VITALS: BP 129/78
[2022-05-15] MEDS: ALBUTEROL 0.083% 2.5 MG/3 ML INH IH SCH (18:00)
[2022-05-15] MEDS: IPRATROPIUM 0.5 MG/2.5 ML INH IH SCH ×2 (19:11→23:30)
[2022-05-15 19:12] VITALS: BP 134/85
[2022-05-15] MEDS ORDERED: PHARMACY COMMUNICATION MISC SCH (19:30)
[2022-05-15] MEDS ORDERED: FOLIC ACID 1 MG TABLET PO ONE (19:30)
[2022-05-15] MEDS ORDERED: PHARMACY COMMUNICATION MISC PRN (19:30)
[2022-05-15 19:55] LABS: ABG BASE EXCESS 2.4 mmol/L (-2.0-3.0); ABG HCO3 29.6 mmol/L (21.0-28.0); ABG OXYGEN SATURATION 95.8 % (95.0-99.0); ABG PCO2 56 mmHg (35-48)
[2022-05-15] MEDS: CEFTRIAXONE 1G VIAL IVP SCH (20:23)
[2022-05-15] MEDS: DOXYCYCLINE HYCLATE 100 MG TABLET PO SCH (20:23)
[2022-05-15] MEDS: FUROSEMIDE 20MG VIAL IV SCH (20:23)
[2022-05-15 20:43] LABS: AMPHET/METH SCREEN,URINE NEGATIVE (NEGATIVE); BARBITURATE SCREEN, URINE NEGATIVE (NEGATIVE); BENZODIAZEPINES SCREEN,URINE NEGATIVE (NEGATIVE); CANNABINOID SCREEN,URINE NEGATIVE (NEGATIVE); COCAINE SCREEN,URINE POSITIVE (NEGATIVE); OPIATE SCREEN,URINE NEGATIVE (NEGATIVE); PHENCYCLIDINE SCREEN,URINE NEGATIVE (NEGATIVE)
[2022-05-15] MEDS: CHLORDIAZEPOXIDE HCL 25 MG CAP PO PRN (22:24)
[2022-05-15 23:24] VITALS: BP 132/52
[2022-05-16] VITALS (9 sets, daily range): BP systolic 117–146; BP diastolic 63–90
[2022-05-16 04:01] LABS: BASOPHILS % (AUTO) 0.1 % (0.0-5.0); HEMATOCRIT 49.4 % (42-54); LYMPHOCYTES % (AUTO) 8.1 % (21.0-51.0); MEAN CORPUSCULAR HEMOGLOBIN 28.1 pg (27.0-33.0); MEAN CORPUSCULAR HGB CONC 30.4 g/dL (32.0-36.0); MEAN CORPUSCULAR VOLUME 92.5 fL (79-99); MONOCYTES % (AUTO) 5.5 % (3.0-13.0); NEUTROPHILS % (AUTO) 85.8 % (40.0-77.0); PLATELET COUNT (AUTO) 258 K/uL (130-400); RED BLOOD CELL COUNT(AUTO) 5.34 MIL/uL (4.50-6.20); RED CELL DISTRIBUTION WIDTH 13.9 % (11.0-15.5); WHITE BLOOD COUNT (AUTO) 14.9 K/uL (4.8-10.8)
[2022-05-16 04:07] LABS: HEMOGLOBIN A1C 5.8 % (4.0-6.0)
[2022-05-16 04:15] LABS: ALBUMIN 3.6 g/dL (3.5-5.0); CREATININE 0.8 mg/dL (0.5-1.5); PHOSPHORUS 5.1 mg/dL (2.5-4.9); POTASSIUM 4.4 mmol/L (3.5-5.1); TOTAL PROTEIN, SERUM 7.7 g/dL (6.0-8.3)
[2022-05-16 04:30] LABS: ABG BASE EXCESS 6.8 mmol/L (-2.0-3.0); ABG HCO3 36.8 mmol/L (21.0-28.0); ABG PCO2 80 mmHg (35-48)
[2022-05-16] MEDS: ALBUTEROL 0.083% 2.5 MG/3 ML INH IH SCH ×5 (06:00→23:54)
[2022-05-16] MEDS ORDERED: ALBUTEROL 0.042% 1.25MG/3ML IH ONE (06:19)
[2022-05-16] MEDS: IPRATROPIUM 0.5 MG/2.5 ML INH IH SCH ×4 (07:02→23:54)
[2022-05-16] MEDS: FUROSEMIDE 20MG VIAL IV SCH ×2 (07:38→19:18)
[2022-05-16] MEDS: SOLU-MEDROL 40MG VIAL IVP SCH ×2 (08:47→21:26)
[2022-05-16] MEDS: DOXYCYCLINE HYCLATE 100 MG TABLET PO SCH ×2 (08:48→21:26)
[2022-05-16] MEDS: FOLIC ACID 1 MG TABLET PO SCH (08:48)
[2022-05-16] MEDS: THIAMINE HCL 100 MG TABLET PO SCH (08:48)
[2022-05-16 12:12] LABS: ABG BASE EXCESS 7.6 mmol/L (-2.0-3.0); ABG HCO3 36.8 mmol/L (21.0-28.0); ABG OXYGEN SATURATION 91.2 % (95.0-99.0); ABG PCO2 73 mmHg (35-48)
[2022-05-16] MEDS: CHLORDIAZEPOXIDE HCL 25 MG CAP PO PRN (14:16)
[2022-05-16] MEDS ORDERED: ACETAZOLAMIDE SODIUM 500 MG VIAL IV SCH (16:30)
[2022-05-16] MEDS: LEVOFLOXACIN 750 MG/D5W 150ML BAG IVPB SCH (17:09)
[2022-05-16] MEDS: CEFTRIAXONE 1G VIAL IVP SCH (21:25)
[2022-05-16] MEDS: ACETAZOLAMIDE SODIUM 500 MG VIAL IV SCH (21:26)
[2022-05-17 03:24] VITALS: BP 106/75
[2022-05-17 03:45] LABS: BASOPHILS % (AUTO) 0.1 % (0.0-5.0); HEMATOCRIT 53.5 % (42-54); MEAN CORPUSCULAR HEMOGLOBIN 27.6 pg (27.0-33.0); MEAN CORPUSCULAR HGB CONC 30.1 g/dL (32.0-36.0); MEAN CORPUSCULAR VOLUME 91.6 fL (79-99); NEUTROPHILS % (AUTO) 92.2 % (40.0-77.0); PLATELET COUNT (AUTO) 299 K/uL (130-400); RED BLOOD CELL COUNT(AUTO) 5.84 MIL/uL (4.50-6.20); WHITE BLOOD COUNT (AUTO) 15.8 K/uL (4.8-10.8)
[2022-05-17 04:01] LABS: MAGNESIUM 2.2 mg/dL (1.80-2.40); PHOSPHORUS 4.6 mg/dL (2.5-4.9); POTASSIUM 4.6 mmol/L (3.5-5.1)
[2022-05-17 04:09] LABS: ABG BASE EXCESS 2.2 mmol/L (-2.0-3.0); ABG HCO3 31.2 mmol/L (21.0-28.0); ABG OXYGEN SATURATION 90.9 % (95.0-99.0); ABG PCO2 68 mmHg (35-48)
[2022-05-17] MEDS: ALBUTEROL 0.083% 2.5 MG/3 ML INH IH SCH ×3 (06:00→23:48)
[2022-05-17] MEDS: FUROSEMIDE 20MG VIAL IV SCH ×2 (06:04→21:09)
[2022-05-17] MEDS ORDERED: ALBUTEROL 0.042% 1.25MG/3ML IH ONE ×5 (06:40→18:41)
[2022-05-17] MEDS: IPRATROPIUM 0.5 MG/2.5 ML INH IH SCH ×4 (07:14→23:48)
[2022-05-17 08:00] VITALS: BP 121/62
[2022-05-17] MEDS: SOLU-MEDROL 40MG VIAL IVP SCH ×2 (08:38→21:10)
[2022-05-17] MEDS: FOLIC ACID 1 MG TABLET PO SCH (08:38)
[2022-05-17] MEDS: ACETAZOLAMIDE SODIUM 500 MG VIAL IV SCH (08:38)
[2022-05-17] MEDS: THIAMINE HCL 100 MG TABLET PO SCH (08:38)
[2022-05-17] MEDS: DOXYCYCLINE HYCLATE 100 MG TABLET PO SCH ×2 (08:38→21:10)
[2022-05-17] MEDS ORDERED: SODIUM CHLORIDE 3% FOR INHALATION 4 ML/AMP VIAL.NEB IH ONE (10:01)
[2022-05-17 11:22] VITALS: BP 128/77
[2022-05-17 16:00] VITALS: BP 149/90
[2022-05-17] MEDS: LEVOFLOXACIN 750 MG/D5W 150ML BAG IVPB SCH (16:57)
[2022-05-17 19:39] VITALS: BP 139/83
[2022-05-17] MEDS: CEFTRIAXONE 1G VIAL IVP SCH (21:10)
[2022-05-18 00:51] VITALS: BP 129/86
[2022-05-18 04:39] VITALS: BP 143/83
[2022-05-18 07:00] VITALS: BP 140/82
[2022-05-18] MEDS ORDERED: SODIUM CHLORIDE 3% FOR INHALATION 4 ML/AMP VIAL.NEB IH ONE (07:36)
[2022-05-18] MEDS: IPRATROPIUM 0.5 MG/2.5 ML INH IH SCH ×4 (07:40→23:15)
[2022-05-18] MEDS: ALBUTEROL 0.083% 2.5 MG/3 ML INH IH SCH ×4 (07:40→23:15)
[2022-05-18] MEDS: FOLIC ACID 1 MG TABLET PO SCH (07:59)
[2022-05-18] MEDS: THIAMINE HCL 100 MG TABLET PO SCH (07:59)
[2022-05-18] MEDS: FUROSEMIDE 20MG VIAL IV SCH ×2 (07:59→19:54)
[2022-05-18] MEDS: DOXYCYCLINE HYCLATE 100 MG TABLET PO SCH ×2 (07:59→20:03)
[2022-05-18] MEDS: SOLU-MEDROL 40MG VIAL IVP SCH ×2 (08:03→20:03)
[2022-05-18 11:00] VITALS: BP 135/98
[2022-05-18 12:27] LABS: BASOPHILS % (AUTO) 0.1 % (0.0-5.0); HEMATOCRIT 51.9 % (42-54); MEAN CORPUSCULAR HEMOGLOBIN 28.3 pg (27.0-33.0); MEAN CORPUSCULAR HGB CONC 32.2 g/dL (32.0-36.0); MEAN CORPUSCULAR VOLUME 87.8 fL (79-99); MONOCYTES % (AUTO) 3.5 % (3.0-13.0); NEUTROPHILS % (AUTO) 91.9 % (40.0-77.0); PLATELET COUNT (AUTO) 277 K/uL (130-400); RED BLOOD CELL COUNT(AUTO) 5.91 MIL/uL (4.50-6.20); RED CELL DISTRIBUTION WIDTH 14.3 % (11.0-15.5)
[2022-05-18 12:42] LABS: POTASSIUM 4.6 mmol/L (3.5-5.1)
[2022-05-18 12:45] LABS: MAGNESIUM 2.2 mg/dL (1.80-2.40); PHOSPHORUS 3.9 mg/dL (2.5-4.9)
[2022-05-18 12:59] LABS: B-TYPE NATRIURETIC PEPTIDE < 5 pg/mL (0-100)
[2022-05-18] MEDS: NEOMY SULF/BACITRAC ZN/POLY OINT 30GM TUBE TP SCH (13:03)
[2022-05-18 13:42] LABS: ABG BASE EXCESS 0.5 mmol/L (-2.0-3.0); ABG OXYGEN SATURATION 89.3 % (95.0-99.0); ABG PCO2 63 mmHg (35-48)
[2022-05-18 15:14] VITALS: BP 148/100
[2022-05-18] MEDS: LEVOFLOXACIN 750 MG/D5W 150ML BAG IVPB SCH (17:13)
[2022-05-18 19:21] VITALS: BP 140/87
[2022-05-18] MEDS: ENOXAPARIN SODIUM 30 MG/0.3 ML SQ SCH (20:03)
[2022-05-18] MEDS: CEFTRIAXONE 1G VIAL IVP SCH (20:03)
[2022-05-19] VITALS (7 sets, daily range): BP systolic 125–143; BP diastolic 79–99
[2022-05-19 04:02] LABS: ABG BASE EXCESS 1.8 mmol/L (-2.0-3.0); ABG HCO3 31.5 mmol/L (21.0-28.0); ABG OXYGEN SATURATION 92.5 % (95.0-99.0); ABG PCO2 74 mmHg (35-48)
[2022-05-19 04:57] LABS: BASOPHILS % (AUTO) 0.2 % (0.0-5.0); LYMPHOCYTES % (AUTO) 5.2 % (21.0-51.0); MEAN CORPUSCULAR HEMOGLOBIN 27.7 pg (27.0-33.0); MEAN CORPUSCULAR HGB CONC 30.6 g/dL (32.0-36.0); MEAN CORPUSCULAR VOLUME 90.6 fL (79-99); NEUTROPHILS % (AUTO) 87.8 % (40.0-77.0); PLATELET COUNT (AUTO) 285 K/uL (130-400); RED BLOOD CELL COUNT(AUTO) 5.96 MIL/uL (4.50-6.20); RED CELL DISTRIBUTION WIDTH 13.9 % (11.0-15.5); WHITE BLOOD COUNT (AUTO) 17.4 K/uL (4.8-10.8)
[2022-05-19 05:20] LABS: B-TYPE NATRIURETIC PEPTIDE < 5 pg/mL (0-100)
[2022-05-19 05:24] LABS: CREATININE 0.9 mg/dL (0.5-1.5); MAGNESIUM 2.2 mg/dL (1.80-2.40); PHOSPHORUS 4.4 mg/dL (2.5-4.9); POTASSIUM 4.6 mmol/L (3.5-5.1)
[2022-05-19] MEDS: IPRATROPIUM 0.5 MG/2.5 ML INH IH SCH ×4 (06:35→23:29)
[2022-05-19] MEDS: ALBUTEROL 0.083% 2.5 MG/3 ML INH IH SCH ×4 (06:35→23:29)
[2022-05-19] MEDS: SOLU-MEDROL 40MG VIAL IVP SCH ×2 (09:04→20:19)
[2022-05-19] MEDS: FOLIC ACID 1 MG TABLET PO SCH (09:04)
[2022-05-19] MEDS: FUROSEMIDE 20MG VIAL IV SCH ×2 (09:04→20:19)
[2022-05-19] MEDS: THIAMINE HCL 100 MG TABLET PO SCH (09:04)
[2022-05-19] MEDS: DOXYCYCLINE HYCLATE 100 MG TABLET PO SCH ×2 (09:04→20:18)
[2022-05-19] MEDS: ENOXAPARIN SODIUM 30 MG/0.3 ML SQ SCH ×2 (09:05→20:18)
[2022-05-19] MEDS: NEOMY SULF/BACITRAC ZN/POLY OINT 30GM TUBE TP SCH (09:12)
[2022-05-19 13:03] LABS: ABG BASE EXCESS 3.9 mmol/L (-2.0-3.0); ABG HCO3 32.7 mmol/L (21.0-28.0); ABG OXYGEN SATURATION 90.7 % (95.0-99.0); ABG PCO2 68 mmHg (35-48)
[2022-05-19] MEDS: LEVOFLOXACIN 750 MG/D5W 150ML BAG IVPB SCH (17:07)
[2022-05-19] MEDS: CEFTRIAXONE 1G VIAL IVP SCH (20:19)
[2022-05-20] VITALS (7 sets, daily range): BP systolic 120–152; BP diastolic 59–98
[2022-05-20 04:04] LABS: ABG BASE EXCESS 4.5 mmol/L (-2.0-3.0); ABG HCO3 34.4 mmol/L (21.0-28.0); ABG OXYGEN SATURATION 95.8 % (95.0-99.0); ABG PCO2 77 mmHg (35-48)
[2022-05-20] MEDS: FUROSEMIDE 20MG VIAL IV SCH ×2 (06:27→20:16)
[2022-05-20] MEDS: ALBUTEROL 0.083% 2.5 MG/3 ML INH IH SCH ×4 (06:37→23:39)
[2022-05-20] MEDS: IPRATROPIUM 0.5 MG/2.5 ML INH IH SCH ×4 (06:37→23:39)
[2022-05-20 06:52] LABS: ABG BASE EXCESS 5.2 mmol/L (-2.0-3.0); ABG PCO2 82 mmHg (35-48)
[2022-05-20] MEDS: ENOXAPARIN SODIUM 30 MG/0.3 ML SQ SCH ×2 (09:18→20:16)
[2022-05-20] MEDS: FOLIC ACID 1 MG TABLET PO SCH (09:18)
[2022-05-20] MEDS: THIAMINE HCL 100 MG TABLET PO SCH (09:18)
[2022-05-20] MEDS: SOLU-MEDROL 40MG VIAL IVP SCH ×2 (09:18→20:16)
[2022-05-20] MEDS: DOXYCYCLINE HYCLATE 100 MG TABLET PO SCH ×2 (09:18→20:16)
[2022-05-20] MEDS: NEOMY SULF/BACITRAC ZN/POLY OINT 30GM TUBE TP SCH (09:19)
[2022-05-20 12:06] LABS: ABG BASE EXCESS 5.5 mmol/L (-2.0-3.0); ABG HCO3 34.6 mmol/L (21.0-28.0); ABG OXYGEN SATURATION 94.3 % (95.0-99.0); ABG PCO2 71 mmHg (35-48)
[2022-05-20] MEDS: LEVOFLOXACIN 750 MG/D5W 150ML BAG IVPB SCH (16:48)
[2022-05-20] MEDS ORDERED: ALBUTEROL 0.042% 1.25MG/3ML IH ONE ×4 (19:27→22:17)
[2022-05-20] MEDS: CEFTRIAXONE 1G VIAL IVP SCH (20:16)
[2022-05-20] MEDS: ACETAMINOPHEN 325 MG TAB PO PRN (20:18)
[2022-05-21 03:22] LABS: ABG BASE EXCESS 8.4 mmol/L (-2.0-3.0); ABG HCO3 38.1 mmol/L (21.0-28.0); ABG PCO2 76 mmHg (35-48)
[2022-05-21 03:54] VITALS: BP_SYST 135; BP_SYST 77; BP_DIAS 64; BP_DIAS 94
[2022-05-21] MEDS: IPRATROPIUM 0.5 MG/2.5 ML INH IH SCH ×4 (06:49→23:14)
[2022-05-21] MEDS: ALBUTEROL 0.083% 2.5 MG/3 ML INH IH SCH ×3 (06:49→23:14)
[2022-05-21] MEDS: FUROSEMIDE 20MG VIAL IV SCH (07:28)
[2022-05-21 07:58] VITALS: BP 125/82
[2022-05-21] MEDS: FOLIC ACID 1 MG TABLET PO SCH (08:23)
[2022-05-21] MEDS: THIAMINE HCL 100 MG TABLET PO SCH (08:23)
[2022-05-21] MEDS: SOLU-MEDROL 40MG VIAL IVP SCH ×2 (08:23→21:50)
[2022-05-21] MEDS: DOXYCYCLINE HYCLATE 100 MG TABLET PO SCH ×2 (08:23→21:50)
[2022-05-21] MEDS: NEOMY SULF/BACITRAC ZN/POLY OINT 30GM TUBE TP SCH (08:25)
[2022-05-21] MEDS: ENOXAPARIN SODIUM 30 MG/0.3 ML SQ SCH ×2 (08:25→21:51)
[2022-05-21] MEDS ORDERED: ALBUTEROL 0.042% 1.25MG/3ML IH ONE (11:03)
[2022-05-21 11:51] VITALS: BP 136/66
[2022-05-21] MEDS ORDERED: LACTULOSE 20 GM/30 ML UDCUP PO PRN (13:30)
[2022-05-21] MEDS: FUROSEMIDE 40MG VIAL IV SCH ×2 (13:34→21:50)
[2022-05-21 15:44] VITALS: BP 120/74
[2022-05-21] MEDS: LEVOFLOXACIN 750 MG/D5W 150ML BAG IVPB SCH (17:26)
[2022-05-21 20:01] VITALS: BP 129/66
[2022-05-21] MEDS: CEFTRIAXONE 1G VIAL IVP SCH (21:50)
[2022-05-21] MEDS: ACETAMINOPHEN 325 MG TAB PO PRN (21:56)
[2022-05-22 00:05] VITALS: BP 138/92
[2022-05-22 03:40] LABS: MEAN CORPUSCULAR HEMOGLOBIN 28.1 pg (27.0-33.0); MEAN CORPUSCULAR HGB CONC 31.5 g/dL (32.0-36.0); MEAN CORPUSCULAR VOLUME 89.2 fL (79-99); RED BLOOD CELL COUNT(AUTO) 5.83 MIL/uL (4.50-6.20); RED CELL DISTRIBUTION WIDTH 13.4 % (11.0-15.5); WHITE BLOOD COUNT (AUTO) 17.6 K/uL (4.8-10.8)
[2022-05-22 03:51] LABS: MAGNESIUM 2.2 mg/dL (1.80-2.40); PHOSPHORUS 4.7 mg/dL (2.5-4.9); POTASSIUM 4.2 mmol/L (3.5-5.1)
[2022-05-22 04:35] VITALS: BP 130/68
[2022-05-22] MEDS: IPRATROPIUM 0.5 MG/2.5 ML INH IH SCH ×4 (06:47→23:50)
[2022-05-22] MEDS: ALBUTEROL 0.083% 2.5 MG/3 ML INH IH SCH ×4 (06:49→23:50)
[2022-05-22 07:09] LABS: ABG BASE EXCESS 11.3 mmol/L (-2.0-3.0); ABG HCO3 40.3 mmol/L (21.0-28.0); ABG OXYGEN SATURATION 95.9 % (95.0-99.0); ABG PCO2 73 mmHg (35-48)
[2022-05-22] MEDS: DOXYCYCLINE HYCLATE 100 MG TABLET PO SCH ×2 (08:27→21:08)
[2022-05-22] MEDS: FOLIC ACID 1 MG TABLET PO SCH (08:28)
[2022-05-22] MEDS: LISINOPRIL 20 MG TABLET PO SCH (08:28)
[2022-05-22] MEDS: CITALOPRAM 20 MG TABLET PO SCH (08:28)
[2022-05-22] MEDS: DILTIAZEM 60MG TAB PO SCH ×4 (08:31→17:40)
[2022-05-22 08:32] VITALS: BP 145/111
[2022-05-22] MEDS: ENOXAPARIN SODIUM 30 MG/0.3 ML SQ SCH ×2 (08:34→21:08)
[2022-05-22] MEDS: THIAMINE HCL 100 MG TABLET PO SCH (08:36)
[2022-05-22] MEDS: FUROSEMIDE 40MG VIAL IV SCH ×2 (08:46→21:07)
[2022-05-22] MEDS: SOLU-MEDROL 40MG VIAL IVP SCH ×2 (08:49→21:07)
[2022-05-22] MEDS: NEOMY SULF/BACITRAC ZN/POLY OINT 30GM TUBE TP SCH (08:50)
[2022-05-22 12:02] VITALS: BP 91/42
[2022-05-22 16:00] VITALS: BP 121/73
[2022-05-22] MEDS: LEVOFLOXACIN 750 MG/D5W 150ML BAG IVPB SCH (17:40)
[2022-05-22 20:28] VITALS: BP 125/60
[2022-05-22] MEDS: CEFTRIAXONE 1G VIAL IVP SCH (21:07)
[2022-05-23] VITALS (9 sets, daily range): BP systolic 98–139; BP diastolic 51–87
[2022-05-23] MEDS: DILTIAZEM 60MG TAB PO SCH ×5 (00:32→23:40)
[2022-05-23 03:42] LABS: HEMATOCRIT 50.5 % (42-54); MEAN CORPUSCULAR HEMOGLOBIN 27.5 pg (27.0-33.0); MEAN CORPUSCULAR HGB CONC 30.9 g/dL (32.0-36.0); MEAN CORPUSCULAR VOLUME 89.1 fL (79-99); RED BLOOD CELL COUNT(AUTO) 5.67 MIL/uL (4.50-6.20); RED CELL DISTRIBUTION WIDTH 13.6 % (11.0-15.5); WHITE BLOOD COUNT (AUTO) 18.9 K/uL (4.8-10.8)
[2022-05-23 03:56] LABS: CREATININE 1.1 mg/dL (0.5-1.5); MAGNESIUM 2.3 mg/dL (1.80-2.40)
[2022-05-23 04:13] LABS: POTASSIUM 4.2 mmol/L (3.5-5.1)
[2022-05-23] MEDS: ALBUTEROL 0.083% 2.5 MG/3 ML INH IH SCH ×4 (06:37→23:18)
[2022-05-23] MEDS: IPRATROPIUM 0.5 MG/2.5 ML INH IH SCH ×4 (06:37→23:18)
[2022-05-23] MEDS: CITALOPRAM 20 MG TABLET PO SCH (08:57)
[2022-05-23] MEDS: PREDNISONE 20 MG TABLET PO SCH (08:57)
[2022-05-23] MEDS: NEOMY SULF/BACITRAC ZN/POLY OINT 30GM TUBE TP SCH (08:57)
[2022-05-23] MEDS: ENOXAPARIN SODIUM 30 MG/0.3 ML SQ SCH ×2 (08:57→20:41)
[2022-05-23] MEDS: FOLIC ACID 1 MG TABLET PO SCH (08:57)
[2022-05-23] MEDS: THIAMINE HCL 100 MG TABLET PO SCH (08:57)
[2022-05-23] MEDS: DOXYCYCLINE HYCLATE 100 MG TABLET PO SCH ×2 (08:57→20:40)
[2022-05-23] MEDS: LISINOPRIL 20 MG TABLET PO SCH (08:58)
[2022-05-23] MEDS: LEVOFLOXACIN 750 MG TABLET PO SCH (09:12)
[2022-05-23 11:26] LABS: APPEARANCE,URINE CLEAR (CLEAR); BILIRUBIN,URINE NEGATIVE (NEGATIVE); COLOR,URINE LIGHT-YELLOW (YELLOW); GLUCOSE, URINE (UA) NEGATIVE (NEGATIVE); KETONES,URINE NEGATIVE (NEGATIVE); LEUKOCYTE ESTERASE ,URINE NEGATIVE Leu/uL (NEGATIVE); NITRATE,URINE NEGATIVE (NEGATIVE); OCCULT BLOOD,URINE NEGATIVE (NEGATIVE); PH,URINE 5.5 (5.0-8.0); PROTEIN,URINE NEGATIVE (NEGATIVE); UROBILINOGEN,URINE 0.2 mg/dL (0.2-1.0)
[2022-05-23] MEDS: ACETAMINOPHEN 325 MG TAB PO PRN (22:13)
[2022-05-24 03:15] VITALS: BP 128/73
[2022-05-24 05:48] LABS: HEMATOCRIT 48.9 % (42-54); MEAN CORPUSCULAR HEMOGLOBIN 27.4 pg (27.0-33.0); MEAN CORPUSCULAR HGB CONC 30.3 g/dL (32.0-36.0); MEAN CORPUSCULAR VOLUME 90.4 fL (79-99); PLATELET COUNT (AUTO) 218 K/uL (130-400); RED BLOOD CELL COUNT(AUTO) 5.41 MIL/uL (4.50-6.20); RED CELL DISTRIBUTION WIDTH 13.9 % (11.0-15.5); WHITE BLOOD COUNT (AUTO) 14.2 K/uL (4.8-10.8)
[2022-05-24 06:03] LABS: CREATININE 0.8 mg/dL (0.5-1.5); MAGNESIUM 2.1 mg/dL (1.80-2.40); PHOSPHORUS 3.8 mg/dL (2.5-4.9); POTASSIUM 4.1 mmol/L (3.5-5.1)
[2022-05-24] MEDS: DILTIAZEM 60MG TAB PO SCH ×3 (06:30→18:06)
[2022-05-24] MEDS: ALBUTEROL 0.083% 2.5 MG/3 ML INH IH SCH ×4 (06:47→23:04)
[2022-05-24] MEDS: IPRATROPIUM 0.5 MG/2.5 ML INH IH SCH ×4 (06:47→23:04)
[2022-05-24] MEDS: LEVOFLOXACIN 750 MG TABLET PO SCH (07:59)
[2022-05-24] MEDS: PREDNISONE 20 MG TABLET PO SCH (07:59)
[2022-05-24] MEDS: CITALOPRAM 20 MG TABLET PO SCH (07:59)
[2022-05-24] MEDS: LISINOPRIL 20 MG TABLET PO SCH (07:59)
[2022-05-24] MEDS: FOLIC ACID 1 MG TABLET PO SCH (07:59)
[2022-05-24] MEDS: DOXYCYCLINE HYCLATE 100 MG TABLET PO SCH ×2 (07:59→20:55)
[2022-05-24] MEDS: THIAMINE HCL 100 MG TABLET PO SCH (07:59)
[2022-05-24] MEDS: ENOXAPARIN SODIUM 30 MG/0.3 ML SQ SCH ×2 (08:00→20:56)
[2022-05-24 08:38] VITALS: BP 134/72
[2022-05-24] MEDS: NEOMY SULF/BACITRAC ZN/POLY OINT 30GM TUBE TP SCH (09:00)
[2022-05-24] MEDS: ACETAMINOPHEN 325 MG TAB PO PRN (11:07)
[2022-05-24 12:04] VITALS: BP 103/57
[2022-05-24 16:00] VITALS: BP 124/73
[2022-05-24 20:00] VITALS: BP 117/60
[2022-05-24 23:57] VITALS: BP 135/77
[2022-05-25] MEDS: DILTIAZEM 60MG TAB PO SCH ×4 (00:03→18:29)
[2022-05-25 04:00] VITALS: BP 122/77
[2022-05-25] MEDS: ALBUTEROL 0.083% 2.5 MG/3 ML INH IH SCH ×4 (06:59→23:16)
[2022-05-25] MEDS: IPRATROPIUM 0.5 MG/2.5 ML INH IH SCH ×4 (06:59→23:16)
[2022-05-25 07:30] VITALS: BP 123/83
[2022-05-25] MEDS: DOXYCYCLINE HYCLATE 100 MG TABLET PO SCH ×2 (07:52→20:25)
[2022-05-25] MEDS: LEVOFLOXACIN 750 MG TABLET PO SCH (07:52)
[2022-05-25] MEDS: FOLIC ACID 1 MG TABLET PO SCH (07:52)
[2022-05-25] MEDS: CITALOPRAM 20 MG TABLET PO SCH (07:52)
[2022-05-25] MEDS: LISINOPRIL 20 MG TABLET PO SCH (07:52)
[2022-05-25] MEDS: THIAMINE HCL 100 MG TABLET PO SCH (07:52)
[2022-05-25] MEDS: PREDNISONE 20 MG TABLET PO SCH (07:52)
[2022-05-25] MEDS: ENOXAPARIN SODIUM 30 MG/0.3 ML SQ SCH ×2 (07:53→20:26)
[2022-05-25] MEDS: NEOMY SULF/BACITRAC ZN/POLY OINT 30GM TUBE TP SCH (07:54)
[2022-05-25 11:30] VITALS: BP 117/67
[2022-05-25 15:30] VITALS: BP 114/81
[2022-05-25 20:00] VITALS: BP 137/75
[2022-05-25 23:51] VITALS: BP 119/67
[2022-05-26] MEDS: DILTIAZEM 60MG TAB PO SCH ×5 (00:26→23:45)
[2022-05-26 03:22] VITALS: BP 137/81
[2022-05-26] MEDS: ALBUTEROL 0.083% 2.5 MG/3 ML INH IH SCH ×4 (06:54→23:14)
[2022-05-26] MEDS: IPRATROPIUM 0.5 MG/2.5 ML INH IH SCH ×4 (06:54→23:14)
[2022-05-26 07:30] VITALS: BP 115/67
[2022-05-26] MEDS: PREDNISONE 20 MG TABLET PO SCH (08:39)
[2022-05-26] MEDS: LEVOFLOXACIN 750 MG TABLET PO SCH (08:39)
[2022-05-26] MEDS: LISINOPRIL 20 MG TABLET PO SCH (08:39)
[2022-05-26] MEDS: CITALOPRAM 20 MG TABLET PO SCH (08:39)
[2022-05-26] MEDS: THIAMINE HCL 100 MG TABLET PO SCH (08:39)
[2022-05-26] MEDS: DOXYCYCLINE HYCLATE 100 MG TABLET PO SCH ×2 (08:39→20:31)
[2022-05-26] MEDS: FOLIC ACID 1 MG TABLET PO SCH (08:39)
[2022-05-26] MEDS: NEOMY SULF/BACITRAC ZN/POLY OINT 30GM TUBE TP SCH (08:40)
[2022-05-26] MEDS: ENOXAPARIN SODIUM 30 MG/0.3 ML SQ SCH ×2 (08:40→20:32)
[2022-05-26 11:21] VITALS: BP 98/58
[2022-05-26 15:30] VITALS: BP 114/59
[2022-05-26 20:00] VITALS: BP 139/62
[2022-05-27] VITALS: BP 129/82
[2022-05-27 03:53] VITALS: BP 145/78
[2022-05-27] MEDS: DILTIAZEM 60MG TAB PO SCH ×4 (05:05→23:55)
[2022-05-27 06:32] LABS: BASOPHILS % (AUTO) 0.2 % (0.0-5.0); EOSINOPHILS % (AUTO) 0.7 % (0.0-8.0); HEMATOCRIT 47.2 % (42-54); LYMPHOCYTES % (AUTO) 23.1 % (21.0-51.0); MEAN CORPUSCULAR HEMOGLOBIN 27.8 pg (27.0-33.0); MEAN CORPUSCULAR HGB CONC 30.7 g/dL (32.0-36.0); MEAN CORPUSCULAR VOLUME 90.4 fL (79-99); MONOCYTES % (AUTO) 5.4 % (3.0-13.0); NEUTROPHILS % (AUTO) 69.3 % (40.0-77.0); PLATELET COUNT (AUTO) 201 K/uL (130-400); RED BLOOD CELL COUNT(AUTO) 5.22 MIL/uL (4.50-6.20); RED CELL DISTRIBUTION WIDTH 13.8 % (11.0-15.5); WHITE BLOOD COUNT (AUTO) 15.1 K/uL (4.8-10.8)
[2022-05-27 06:53] LABS: CREATININE 0.9 mg/dL (0.5-1.5); MAGNESIUM 2.1 mg/dL (1.80-2.40); PHOSPHORUS 4.6 mg/dL (2.5-4.9); POTASSIUM 4.2 mmol/L (3.5-5.1)
[2022-05-27] MEDS: IPRATROPIUM 0.5 MG/2.5 ML INH IH SCH ×4 (07:10→23:22)
[2022-05-27] MEDS: ALBUTEROL 0.083% 2.5 MG/3 ML INH IH SCH ×4 (07:10→23:22)
[2022-05-27 08:00] VITALS: BP 122/65
[2022-05-27] MEDS: PREDNISONE 20 MG TABLET PO SCH (09:44)
[2022-05-27] MEDS: FOLIC ACID 1 MG TABLET PO SCH (09:44)
[2022-05-27] MEDS: LISINOPRIL 20 MG TABLET PO SCH (09:44)
[2022-05-27] MEDS: LEVOFLOXACIN 750 MG TABLET PO SCH (09:44)
[2022-05-27] MEDS: CITALOPRAM 20 MG TABLET PO SCH (09:44)
[2022-05-27] MEDS: DOXYCYCLINE HYCLATE 100 MG TABLET PO SCH ×2 (09:44→20:55)
[2022-05-27] MEDS: THIAMINE HCL 100 MG TABLET PO SCH (09:44)
[2022-05-27] MEDS: ENOXAPARIN SODIUM 30 MG/0.3 ML SQ SCH ×2 (09:45→20:56)
[2022-05-27] MEDS: NEOMY SULF/BACITRAC ZN/POLY OINT 30GM TUBE TP SCH (09:47)
[2022-05-27 11:44] VITALS: BP 90/64
[2022-05-27 16:17] VITALS: BP 128/73
[2022-05-27 20:00] VITALS: BP 132/74
[2022-05-28] VITALS: BP 117/71
[2022-05-28 04:00] VITALS: BP 113/62
[2022-05-28] MEDS: DILTIAZEM 60MG TAB PO SCH ×4 (05:17→23:50)
[2022-05-28 05:52] LABS: BASOPHILS % (AUTO) 0.2 % (0.0-5.0); EOSINOPHILS % (AUTO) 0.5 % (0.0-8.0); HEMATOCRIT 48.1 % (42-54); LYMPHOCYTES % (AUTO) 20.4 % (21.0-51.0); MEAN CORPUSCULAR HEMOGLOBIN 27.8 pg (27.0-33.0); MEAN CORPUSCULAR HGB CONC 30.6 g/dL (32.0-36.0); MEAN CORPUSCULAR VOLUME 91.1 fL (79-99); MONOCYTES % (AUTO) 5.4 % (3.0-13.0); NEUTROPHILS % (AUTO) 72.4 % (40.0-77.0); PLATELET COUNT (AUTO) 246 K/uL (130-400); RED BLOOD CELL COUNT(AUTO) 5.28 MIL/uL (4.50-6.20); RED CELL DISTRIBUTION WIDTH 13.9 % (11.0-15.5); WHITE BLOOD COUNT (AUTO) 16.7 K/uL (4.8-10.8)
[2022-05-28 06:01] LABS: CREATININE 0.9 mg/dL (0.5-1.5); POTASSIUM 4.4 mmol/L (3.5-5.1)
[2022-05-28] MEDS: IPRATROPIUM 0.5 MG/2.5 ML INH IH SCH ×4 (07:02→23:59)
[2022-05-28] MEDS: ALBUTEROL 0.083% 2.5 MG/3 ML INH IH SCH ×4 (07:02→23:59)
[2022-05-28 08:00] VITALS: BP 106/71
[2022-05-28] MEDS: PREDNISONE 20 MG TABLET PO SCH (08:17)
[2022-05-28] MEDS: CITALOPRAM 20 MG TABLET PO SCH (08:17)
[2022-05-28] MEDS: FOLIC ACID 1 MG TABLET PO SCH (08:17)
[2022-05-28] MEDS: DOXYCYCLINE HYCLATE 100 MG TABLET PO SCH ×2 (08:17→20:04)
[2022-05-28] MEDS: LEVOFLOXACIN 750 MG TABLET PO SCH (08:17)
[2022-05-28] MEDS: ENOXAPARIN SODIUM 30 MG/0.3 ML SQ SCH ×2 (08:17→20:05)
[2022-05-28] MEDS: LISINOPRIL 20 MG TABLET PO SCH (08:18)
[2022-05-28] MEDS: THIAMINE HCL 100 MG TABLET PO SCH (08:18)
[2022-05-28] MEDS: NEOMY SULF/BACITRAC ZN/POLY OINT 30GM TUBE TP SCH (08:19)
[2022-05-28 12:00] VITALS: BP 105/54
[2022-05-28 16:00] VITALS: BP 126/81
[2022-05-28 20:00] VITALS: BP 103/66
[2022-05-28] MEDS: ACETAMINOPHEN 325 MG TAB PO PRN (23:51)
[2022-05-29] VITALS: BP 104/53
[2022-05-29 04:00] VITALS: BP 112/70
[2022-05-29] MEDS: DILTIAZEM 60MG TAB PO SCH ×4 (06:27→23:47)
[2022-05-29] MEDS: ALBUTEROL 0.083% 2.5 MG/3 ML INH IH SCH ×4 (06:34→23:22)
[2022-05-29] MEDS: IPRATROPIUM 0.5 MG/2.5 ML INH IH SCH ×4 (06:34→23:22)
[2022-05-29 06:48] LABS: BASOPHILS % (AUTO) 0.3 % (0.0-5.0); EOSINOPHILS % (AUTO) 0.5 % (0.0-8.0); HEMATOCRIT 46.9 % (42-54); LYMPHOCYTES % (AUTO) 23.5 % (21.0-51.0); MEAN CORPUSCULAR HEMOGLOBIN 27.5 pg (27.0-33.0); MEAN CORPUSCULAR HGB CONC 30.1 g/dL (32.0-36.0); MEAN CORPUSCULAR VOLUME 91.4 fL (79-99); MONOCYTES % (AUTO) 5.2 % (3.0-13.0); NEUTROPHILS % (AUTO) 69.4 % (40.0-77.0); PLATELET COUNT (AUTO) 220 K/uL (130-400); RED BLOOD CELL COUNT(AUTO) 5.13 MIL/uL (4.50-6.20); RED CELL DISTRIBUTION WIDTH 13.9 % (11.0-15.5); WHITE BLOOD COUNT (AUTO) 15.1 K/uL (4.8-10.8)
[2022-05-29 07:23] LABS: CREATININE 0.8 mg/dL (0.5-1.5); POTASSIUM 4.2 mmol/L (3.5-5.1)
[2022-05-29 08:00] VITALS: BP 106/73
[2022-05-29] MEDS: CITALOPRAM 20 MG TABLET PO SCH (08:49)
[2022-05-29] MEDS: LEVOFLOXACIN 750 MG TABLET PO SCH (08:49)
[2022-05-29] MEDS: DOXYCYCLINE HYCLATE 100 MG TABLET PO SCH (08:49)
[2022-05-29] MEDS: FOLIC ACID 1 MG TABLET PO SCH (08:50)
[2022-05-29] MEDS: PREDNISONE 20 MG TABLET PO SCH (08:50)
[2022-05-29] MEDS: LISINOPRIL 20 MG TABLET PO SCH (08:50)
[2022-05-29] MEDS: ENOXAPARIN SODIUM 30 MG/0.3 ML SQ SCH ×2 (08:50→20:34)
[2022-05-29] MEDS: THIAMINE HCL 100 MG TABLET PO SCH (08:50)
[2022-05-29] MEDS: NEOMY SULF/BACITRAC ZN/POLY OINT 30GM TUBE TP SCH (08:52)
[2022-05-29 11:24] VITALS: BP 116/60
[2022-05-29 16:00] VITALS: BP 129/78
[2022-05-29 20:00] VITALS: BP 112/76
[2022-05-29] MEDS: ACETAMINOPHEN 325 MG TAB PO PRN (23:47)
[2022-05-30] VITALS (8 sets, daily range): BP systolic 111–149; BP diastolic 56–77
[2022-05-30] MEDS: DILTIAZEM 60MG TAB PO SCH ×4 (06:14→23:39)
[2022-05-30] MEDS: ALBUTEROL 0.083% 2.5 MG/3 ML INH IH SCH ×4 (07:13→23:11)
[2022-05-30] MEDS: IPRATROPIUM 0.5 MG/2.5 ML INH IH SCH ×4 (07:13→23:11)
[2022-05-30] MEDS: CITALOPRAM 20 MG TABLET PO SCH (09:00)
[2022-05-30] MEDS: PREDNISONE 20 MG TABLET PO SCH (09:00)
[2022-05-30] MEDS: LEVOFLOXACIN 750 MG TABLET PO SCH (09:00)
[2022-05-30] MEDS: THIAMINE HCL 100 MG TABLET PO SCH (09:00)
[2022-05-30] MEDS: FOLIC ACID 1 MG TABLET PO SCH (09:00)
[2022-05-30] MEDS: LISINOPRIL 20 MG TABLET PO SCH (09:01)
[2022-05-30] MEDS: ENOXAPARIN SODIUM 30 MG/0.3 ML SQ SCH ×2 (09:03→20:14)
[2022-05-30] MEDS: NEOMY SULF/BACITRAC ZN/POLY OINT 30GM TUBE TP SCH (09:05)
[2022-05-30] MEDS: TROLAMINE SALICYLATE CREAM 85 GM TUBE TP SCH ×2 (13:54→20:14)
[2022-05-31 03:58] VITALS: BP 136/66
[2022-05-31] MEDS: DILTIAZEM 60MG TAB PO SCH ×3 (06:03→17:29)
[2022-05-31] MEDS: IPRATROPIUM 0.5 MG/2.5 ML INH IH SCH ×4 (06:47→23:17)
[2022-05-31] MEDS: ALBUTEROL 0.083% 2.5 MG/3 ML INH IH SCH ×4 (06:47→23:17)
[2022-05-31 08:00] VITALS: BP 115/74
[2022-05-31] MEDS: THIAMINE HCL 100 MG TABLET PO SCH (08:11)
[2022-05-31] MEDS: PREDNISONE 20 MG TABLET PO SCH (08:11)
[2022-05-31] MEDS: FOLIC ACID 1 MG TABLET PO SCH (08:11)
[2022-05-31] MEDS: LEVOFLOXACIN 750 MG TABLET PO SCH (08:11)
[2022-05-31] MEDS: CITALOPRAM 20 MG TABLET PO SCH (08:11)
[2022-05-31] MEDS: LISINOPRIL 20 MG TABLET PO SCH (08:12)
[2022-05-31] MEDS: ENOXAPARIN SODIUM 30 MG/0.3 ML SQ SCH ×2 (08:12→20:57)
[2022-05-31] MEDS: TROLAMINE SALICYLATE CREAM 85 GM TUBE TP SCH ×2 (08:13→21:00)
[2022-05-31] MEDS: NEOMY SULF/BACITRAC ZN/POLY OINT 30GM TUBE TP SCH (08:13)
[2022-05-31 11:49] VITALS: BP 124/83
[2022-05-31 16:00] VITALS: BP 95/50
[2022-05-31 20:00] VITALS: BP 113/69
[2022-06-01] VITALS: BP 144/68
[2022-06-01] MEDS: DILTIAZEM 60MG TAB PO SCH ×5 (00:22→23:46)
[2022-06-01 04:00] VITALS: BP 118/70
[2022-06-01 05:34] LABS: HEMATOCRIT 45.7 % (42-54); MEAN CORPUSCULAR HEMOGLOBIN 27.5 pg (27.0-33.0); MEAN CORPUSCULAR HGB CONC 31.1 g/dL (32.0-36.0); MEAN CORPUSCULAR VOLUME 88.6 fL (79-99); RED BLOOD CELL COUNT(AUTO) 5.16 MIL/uL (4.50-6.20); WHITE BLOOD COUNT (AUTO) 14.3 K/uL (4.8-10.8)
[2022-06-01 05:52] LABS: CREATININE 0.9 mg/dL (0.5-1.5); POTASSIUM 4.2 mmol/L (3.5-5.1)
[2022-06-01] MEDS: IPRATROPIUM 0.5 MG/2.5 ML INH IH SCH ×4 (07:13→23:16)
[2022-06-01] MEDS: ALBUTEROL 0.083% 2.5 MG/3 ML INH IH SCH ×4 (07:13→23:16)
[2022-06-01 08:00] VITALS: BP 121/70
[2022-06-01] MEDS: CITALOPRAM 20 MG TABLET PO SCH (08:57)
[2022-06-01] MEDS: LISINOPRIL 20 MG TABLET PO SCH (08:57)
[2022-06-01] MEDS: THIAMINE HCL 100 MG TABLET PO SCH (08:57)
[2022-06-01] MEDS: FOLIC ACID 1 MG TABLET PO SCH (08:58)
[2022-06-01] MEDS: ENOXAPARIN SODIUM 30 MG/0.3 ML SQ SCH ×2 (08:58→20:18)
[2022-06-01] MEDS: TROLAMINE SALICYLATE CREAM 85 GM TUBE TP SCH ×2 (08:59→20:18)
[2022-06-01] MEDS: NEOMY SULF/BACITRAC ZN/POLY OINT 30GM TUBE TP SCH (08:59)
[2022-06-01] MEDS: ACETAMINOPHEN 325 MG TAB PO PRN (10:21)
[2022-06-01 11:51] VITALS: BP 113/61
[2022-06-01 16:00] VITALS: BP 105/62
[2022-06-01 20:00] VITALS: BP 102/70
[2022-06-02] VITALS (7 sets, daily range): BP systolic 108–120; BP diastolic 52–80
[2022-06-02] MEDS: DILTIAZEM 60MG TAB PO SCH ×3 (05:36→18:23)
[2022-06-02] MEDS: IPRATROPIUM 0.5 MG/2.5 ML INH IH SCH ×4 (06:33→23:35)
[2022-06-02] MEDS: ALBUTEROL 0.083% 2.5 MG/3 ML INH IH SCH ×4 (06:33→23:35)
[2022-06-02] MEDS: CITALOPRAM 20 MG TABLET PO SCH (08:35)
[2022-06-02] MEDS: THIAMINE HCL 100 MG TABLET PO SCH (08:35)
[2022-06-02] MEDS: FOLIC ACID 1 MG TABLET PO SCH (08:35)
[2022-06-02] MEDS: ENOXAPARIN SODIUM 30 MG/0.3 ML SQ SCH ×2 (08:39→21:56)
[2022-06-02] MEDS: LISINOPRIL 20 MG TABLET PO SCH (09:15)
[2022-06-02] MEDS: TROLAMINE SALICYLATE CREAM 85 GM TUBE TP SCH ×2 (09:15→21:57)
[2022-06-02] MEDS: NEOMY SULF/BACITRAC ZN/POLY OINT 30GM TUBE TP SCH (09:15)
[2022-06-03] MEDS: DILTIAZEM 60MG TAB PO SCH ×4 (00:28→18:33)
[2022-06-03 04:44] VITALS: BP 122/80
[2022-06-03] MEDS: ALBUTEROL 0.083% 2.5 MG/3 ML INH IH SCH ×3 (07:11→18:48)
[2022-06-03] MEDS: IPRATROPIUM 0.5 MG/2.5 ML INH IH SCH ×3 (07:11→18:48)
[2022-06-03 08:07] VITALS: BP 131/74
[2022-06-03] MEDS: CITALOPRAM 20 MG TABLET PO SCH (09:05)
[2022-06-03] MEDS: FOLIC ACID 1 MG TABLET PO SCH (09:05)
[2022-06-03] MEDS: LISINOPRIL 20 MG TABLET PO SCH (09:05)
[2022-06-03] MEDS: THIAMINE HCL 100 MG TABLET PO SCH (09:05)
[2022-06-03] MEDS: ENOXAPARIN SODIUM 30 MG/0.3 ML SQ SCH ×2 (09:06→21:43)
[2022-06-03] MEDS: TROLAMINE SALICYLATE CREAM 85 GM TUBE TP SCH ×2 (09:09→21:43)
[2022-06-03] MEDS: NEOMY SULF/BACITRAC ZN/POLY OINT 30GM TUBE TP SCH (09:09)
[2022-06-03 11:31] VITALS: BP 121/74
[2022-06-03] MEDS: ACETAMINOPHEN 325 MG TAB PO PRN (15:07)
[2022-06-03 16:32] VITALS: BP 103/53
[2022-06-03 20:00] VITALS: BP 122/70
[2022-06-04] VITALS: BP 120/81
[2022-06-04] MEDS: ALBUTEROL 0.083% 2.5 MG/3 ML INH IH SCH ×3 (00:02→10:48)
[2022-06-04] MEDS: IPRATROPIUM 0.5 MG/2.5 ML INH IH SCH ×3 (00:02→10:48)
[2022-06-04] MEDS: DILTIAZEM 60MG TAB PO SCH ×3 (01:03→11:50)
[2022-06-04 04:00] VITALS: BP 119/78
[2022-06-04 08:01] VITALS: BP 106/66
[2022-06-04] MEDS: CITALOPRAM 20 MG TABLET PO SCH (08:07)
[2022-06-04] MEDS: FOLIC ACID 1 MG TABLET PO SCH (08:07)
[2022-06-04] MEDS: LISINOPRIL 20 MG TABLET PO SCH (08:07)
[2022-06-04] MEDS: ENOXAPARIN SODIUM 30 MG/0.3 ML SQ SCH (08:10)
[2022-06-04] MEDS: THIAMINE HCL 100 MG TABLET PO SCH (08:11)
[2022-06-04 11:07] VITALS: BP 120/68
[2022-06-04 11:18] VITALS: BP 120/68
[2022-06-04] MEDS ORDERED: DILT60TA3 PO (14:13)
== END 2022-06-04 16:30 | disposition home or self-care (01) | DRG 139 ==
LOC: EDH 08:41 → EDHIP 08:42 → 2DH 16:14 → 3DH 05-23 17:06
PROVIDERS: ADMIT Internal Medicine; ATTEND Internal Medicine
PROC: 5A09357 Assistance with Respiratory Ventilation, Less than 24 Consecutive Hours, Continuous Positive Airway Pressure (ICD-10-PCS; 2022-05-20)
PROC: 5A09357 Assistance with Respiratory Ventilation, Less than 24 Consecutive Hours, Continuous Positive Airway Pressure (ICD-10-PCS; principal; 2022-05-21)
PROC: 5A0935A Assistance with Respiratory Ventilation, Less than 24 Consecutive Hours, High Flow/Velocity Cannula (ICD-10-PCS; 2022-05-21)
PROC: 5A0935A Assistance with Respiratory Ventilation, Less than 24 Consecutive Hours, High Flow/Velocity Cannula (ICD-10-PCS; 2022-05-22)
PROC: 5A0935A Assistance with Respiratory Ventilation, Less than 24 Consecutive Hours, High Flow/Velocity Cannula (ICD-10-PCS; 2022-05-23)
PROC: 5A09357 Assistance with Respiratory Ventilation, Less than 24 Consecutive Hours, Continuous Positive Airway Pressure (ICD-10-PCS; 2022-05-24)
PROC: 5A09357 Assistance with Respiratory Ventilation, Less than 24 Consecutive Hours, Continuous Positive Airway Pressure (ICD-10-PCS; 2022-05-31)
PROC: 5A09357 Assistance with Respiratory Ventilation, Less than 24 Consecutive Hours, Continuous Positive Airway Pressure (ICD-10-PCS; 2022-06-02)
PROC: 5A09357 Assistance with Respiratory Ventilation, Less than 24 Consecutive Hours, Continuous Positive Airway Pressure (ICD-10-PCS; 2022-06-03)
PROC: 5A09357 Assistance with Respiratory Ventilation, Less than 24 Consecutive Hours, Continuous Positive Airway Pressure (ICD-10-PCS; 2022-06-04)
DX: J15.4 Pneumonia due to other streptococci (principal); J96.21 Acute and chronic respiratory failure with hypoxia; E87.29 Other acidosis; E66.01 Morbid (severe) obesity due to excess calories; J96.22 Acute and chronic respiratory failure with hypercapnia; I10 Essential (primary) hypertension; E11.9 Type 2 diabetes mellitus without complications; E78.00 Pure hypercholesterolemia, unspecified; G47.33 Obstructive sleep apnea (adult) (pediatric); J44.0 Chronic obstructive pulmonary disease with (acute) lower respiratory infection; F14.10 Cocaine abuse, uncomplicated; F19.10 Other psychoactive substance abuse, uncomplicated; J44.1 Chronic obstructive pulmonary disease with (acute) exacerbation; S96.912A Strain of unspecified muscle and tendon at ankle and foot level, left foot, initial encounter; Y92.009 Unspecified place in unspecified non-institutional (private) residence as the place of occurrence of the external cause; Z88.0 Allergy status to penicillin; Z99.81 Dependence on supplemental oxygen; Z91.199 Patient's noncompliance with other medical treatment and regimen due to unspecified reason; Z68.42 Body mass index [BMI] 45.0-49.9, adult; Z72.0 Tobacco use; Z91.81 History of falling; Z91.119 Patient's noncompliance with dietary regimen due to unspecified reason
CPT/HCPCS: 36415; 36600; 71045; 73610; 80048; 80053; 80305; 81003; 82435; 82803; 82947; 83036; 83605; 83735; 83880; 84100; 84132; 84145; 84295; 84443; 84484; 85018; 85025; 85027; 87071; 87077; 87186; 87205; 87635; 87804; 93005; 93306; 93970; 94640; 94660; 94664; 96374; G0378; J0696; J1120; J1650; J1940; J1956; J2920; J2930

== ENCOUNTER → 2023-10-14 | Outpatient (CLI) | payer OTHER ==
[~2023-10-14] MED LIST changes: +ALBU2.5V2 IH; -ALBU6.7H14 IH; +ALBU90AE3 IH; +AMOX1TAB16 PO; -AZIT500T4 PO; +DILT60TA3 PO; +ESCI20TA38 PO; +FLUT1BLS3 IH; -FURO20TA4 PO; -LISI20TA24 PO; +PRED20TA3 PO
[2023-10-14 22:04] VITALS: PULSE 80; RESP 16
[2023-10-14 22:39] VITALS: PULSE 84; RESP 14
[2023-10-14 23:12] VITALS: PULSE 75; RESP 16
[2023-10-14 23:33] VITALS: PULSE 58; RESP 14
[2023-10-15] VITALS (17 sets, daily range): PULSE 57–77; RESP 12–31
== END | disposition home or self-care (01) ==
LOC: SLP 20:35
PROVIDERS: ATTEND Family Medicine
DX: G47.33 Obstructive sleep apnea (adult) (pediatric) (principal)
CPT/HCPCS: 95811

== ENCOUNTER 2023-12-09 13:56 | Emergency (ER) | payer MEDICARE, OTHER ==
[~2023-12-09] VITALS: Ht 177.8 cm; Wt 140.6 kg
[~2023-12-09 13:56] MED LIST changes: +ALBUHFA IH; +METH4TAB3 PO
[2023-12-09 14:53] LABS: BASOPHILS # (AUTO) 0.04 K/uL (0.00-0.20); BASOPHILS % (AUTO) 0.5 % (0.0-5.0); EOSINOPHILS # (AUTO) 0.25 K/uL (0.00-0.70); EOSINOPHILS % (AUTO) 2.8 % (0.0-8.0); HEMATOCRIT 41.8 % (42-54); IMMATURE GRANULOCYTE ABSOLUTE 0.05 K/uL (0-1); LYMPHOCYTES % (AUTO) 22.6 % (21.0-51.0); MEAN CORPUSCULAR HEMOGLOBIN 28.9 pg (27.0-33.0); MEAN CORPUSCULAR HGB CONC 32.1 g/dL (32.0-36.0); MEAN CORPUSCULAR VOLUME 90.1 fL (79-99); MONOCYTES # (AUTO) 0.6 K/uL (0.1-1.0); MONOCYTES % (AUTO) 6.3 % (3.0-13.0); NEUTROPHILS % (AUTO) 67.2 % (40.0-77.0); PLATELET COUNT (AUTO) 230 K/uL (130-400); RED BLOOD CELL COUNT(AUTO) 4.64 MIL/uL (4.50-6.20); RED CELL DISTRIBUTION WIDTH 13.7 % (11.0-15.5); WHITE BLOOD COUNT (AUTO) 8.9 K/uL (4.8-10.8)
[2023-12-09 15:05] LABS: INR 0.97 (0.85-1.15); PROTHROMBIN TIME 10.5 SEC (9.6-11.6)
[2023-12-09 15:06] LABS: CREATININE 0.9 mg/dL (0.5-1.3); PARTIAL THROMBOPLASTIN TIME 27.2 SEC (26.3-35.5); POTASSIUM 3.8 mmol/L (3.5-5.1)
[2023-12-09 15:34] LABS: B-TYPE NATRIURETIC PEPTIDE 69 pg/mL (0-100)
[2023-12-09 16:12] VITALS: BP 144/86; PULSE 65; RESP 16; TEMP 98.3; O2SAT 92
[2023-12-09 16:38] LABS: COVID19 (SARS ANTIGEN RAPID) PRESUMPTIVE NEGATIVE (NEGATIVE); INFLUENZA TYPE A Negative For Type A (NEGATIVE)
[2023-12-09 16:41] LABS: INFLUENZA TYPE B Positive For Type B (NEGATIVE)
[2023-12-09] MEDS ORDERED: OSEL75CA17 PO (17:07)
== END 2023-12-09 17:35 | disposition home or self-care (01) ==
LOC: EDH 13:56
DX: J10.1 Influenza due to other identified influenza virus with other respiratory manifestations (principal); J44.9 Chronic obstructive pulmonary disease, unspecified; F32.A Depression, unspecified; F41.9 Anxiety disorder, unspecified; Z20.822 Contact with and (suspected) exposure to COVID-19; Z79.899 Other long term (current) drug therapy; Z88.0 Allergy status to penicillin; Z90.89 Acquired absence of other organs
CPT/HCPCS: 36415; 71045; 80048; 83880; 84484; 85025; 85610; 85730; 87426; 87804; 93005

== ENCOUNTER 2024-04-24 11:17 | Emergency (ER) | payer OTHER ==
[~2024-04-24] VITALS: Ht 177.8 cm; Wt 142.9 kg
[~2024-04-24 11:17] MED LIST changes: -ALBU2.5V2 IH; -ALBU90AE3 IH; -AMOX1TAB16 PO; +BENZ-39 PO; +DOXY100C5 PO; -ESCI-8 PO; -METH4TAB3 PO
--- NOTE | 2024-04-24 12:08 | ERN ---
ED Note History of Present Illness Stated Complaint: FALL Chief Complaint: Mechanical Fall Time Seen by MD: 11:22 Dictation: 58-year-old male with a history of sleep apnea/COPD comes to the ER after a fall, he stated that he was sleeping in the edge of the bed when he suddenly fall forward, hitting his head, left arm and right hip. Patient came to the ER due to severe pain. Allergies: Coded Allergies: Penicillins (Verified Allergy, Unknown, 07/10/20) Home Meds Active Scripts Doxycycline Hyclate (Doxycycline Hyclate) 100 Mg Capsule, 100 MG PO BID for 7 Days, #14 CAP Prov:SAMUEL DIAZ 12/21/23 Benzonatate (Tessalon Perles) 100 Mg Cap, 100 MG PO Q6HPRN PRN for COUGH/COLD SYMPTOMS, #30 CAP Prov:SAMUEL DIAZ 12/21/23 Albuterol Sulfate (Ventolin Hfa/Proventil Hfa/Proair Hfa) 90 Mcg Puff, 2 PUFF IH Q4H for WHEEZING, #1 INHALER 0 Refills Prov:SAMUEL DIAZ 12/21/23 Prednisone (Prednisone) 20 Mg Tablet, 40 MG PO DAILY, #10 TAB 0 Refills Prov:SAMUEL DIAZ 12/21/23 Fluticasone/Umeclidin/Vilanter (Trelegy Ellipta 100-62.5-25) 100-62.5 Blst.w.dev, 1 PUFF IH DAILY, #1 INHALER Prov:SAMUEL DIAZ 12/21/23 Diltiazem HCl (Diltiazem HCl) 60 Mg Tablet, 30 MG PO Q6H, #120 TAB 0 Refills Prov:KADEN ALMONTE MD 06/04/22 Reported Medications Escitalopram Oxalate (Escitalopram Oxalate) 20 Mg Tablet, 1 TAB PO DAILY 11/20/22 Past Medical History Past Medical History: COPD, Other Additional Past Medical Hx: SLEEP APNEA Surgical History: None Family History: Negative Social History: Negative, Other Initial Vital Sign VS Vital Signs Date Time Temp Pulse Resp B/P (MAP) Pulse Ox O2 Delivery O2 Flow Rate FiO2 04/24/24 11:20 98.8 85 20 141/85 90 Room Air 0 04/24/24 11:26 21 ED Course ED Course Orders Procedure Category Date Status Time Chest 1vw RAD 04/24/24 Resulted 11:52 Ribs Uni Rt W Pa RAD 04/24/24 Resulted Chest 3+ Vws 11:52 Hand 2+Vws Lt Limited RAD 04/24/24 Resulted 11:52 Wrist 2vws Lt RAD 04/24/24 Resulted 11:52 Elbow 2vws Lt RAD 04/24/24 Resulted 11:52 Forearm 2vws Lt RAD 04/24/24 Resulted 11:52 Ct Head/Brain W/O CT 04/24/24 Resulted Contrast 11:52 Ct Maxillofacial W/O CT 04/24/24 Resulted Contrast 11:52 Acetaminophen With PHA 04/24/24 Complete Codeine (Tylenol-Code 12:00 Current Medications Medications (Trade) Dose Ordered Sig/Harrison Route PRN Reason Start Time Stop Time Status Last Admin Dose Admin Acetaminophen/ Codeine Phosphate (TYLenol-coDEINE TAB) 1 tab ONCE ONCE PO 04/24/24 12:00 04/24/24 12:01 DC 04/24/24 12:41 Vital Signs Date Time Temp Pulse Resp B/P (MAP) Pulse Ox O2 Delivery O2 Flow Rate FiO2 04/24/24 14:40 97.9 68 18 136/90 97 Room Air* 0 04/24/24 12:13 98.4 91 18 135/72 92 Room Air* 0 04/24/24 11:26 98.8 85 20 141/85 90 Room Air* 0 04/24/24 11:20 98.8 85 20 141/85 90 Room Air 0 Medical Decision Making MDM 58-year-old male with a history of sleep apnea/COPD comes to the ER after a fall, he stated that he was sleeping in the edge of the bed when he suddenly fall forward, hitting his head, left arm and right hip. Patient came to the ER due to severe pain. Fall Possible facial fracture Possible left arm fracture Possible right hip fracture Imaging was performed CT of face X-ray of left arm X-ray of right hip. All imaging was negative for acute fracture. Patient received pain medication. Plan is to discharge patient on oral pain medication with the recommended to follow up with his PCP in next DX & DISP Disposition: Discharge Departure Impression: Primary Impression: Fall from bed Additional Impressions: Obstructive sleep apnea, Arm pain, Facial contusion Condition: Stable Scripts Ibuprofen (Ibuprofen) 400 Mg Tablet 1 TAB PO TID for pain or fever for 10 Days, #30 TAB 0 Refills Prov: ZAIAD MABRY MD 04/24/24 Acetaminophen (Tylenol) 500 Mg Tab 1 TAB PO Q6HPRN PRN for pain or fever for 15 Days, #60 TAB 0 Refills Prov: ZAIDA MABRY MD 04/24/24 Additional Instructions: RETURN TO ER FOR ANY ACUTE OR WORSENING SYMPTOMS. FOLLOW-UP IN 1-2 DAYS WITH PRIMARY PROVIDER FOR RECHECK OF TODAY'S SYMPTOMS. Referrals: MCKENNA PAL MD (PCP) Time of Disposition: 14:48 ZAIDA MABRY MD Apr 24, 2024 12:08
[2024-04-24] MEDS: acetaMINOPHEN WITH coDEINE 1 TAB TAB PO ONE (12:41)
--- NOTE | 2024-04-24 13:00 | HMCIMG ---
CT HEAD/BRAIN W/O CONTRAST CLINICAL HISTORY: fall COMPARISON: None TECHNIQUE: Multiple sequential axial images of the head were obtained from the base of the skull through vertex. CT was performed with one or more of the following dose reduction techniques: automated exposure control, adjustment of the mA and/or kV according to patient size, or use of iterative reconstruction technique FINDINGS: The brain parenchyma and CSF spaces are unremarkable. No orbital contents and mastoid air cells are unremarkable. There is mild mucoperiosteal thickening in the ethmoid air cells. The calvarium is intact. IMPRESSION: There are no acute findings.
--- NOTE | 2024-04-24 13:02 | HMCIMG ---
CT MAXILLOFACIAL W/O CONTRAST CLINICAL HISTORY: fall COMPARISON: None TECHNIQUE: Multiple sequential high-resolution axial images of the facial bones were obtained. Postprocessing coronal reconstruction images were also obtained. . CT was performed with one or more of the following dose reduction techniques: automated exposure control, adjustment of the mA and/or kV according to patient size, or use of iterative reconstruction technique FINDINGS: The nasal bones orbits and zygomatic arches and maxilla and mandible are intact. There is poor dentition with dental caries. Soft tissue is unremarkable for acute trauma or foreign bodies. The orbital contents are unremarkable. IMPRESSION: There is no identified acute trauma
--- NOTE | 2024-04-24 14:26 | HMCIMG ---
FOREARM 2VWS LT CLINICAL HISTORY: fall ,pain COMPARISON: None TECHNIQUE: AP and lateral images were obtained. FINDINGS: No obvious fracture or dislocation. No joint effusion. The soft tissues appear unremarkable. No radiopaque foreign bodies. IMPRESSION: No acute findings.
--- NOTE | 2024-04-24 14:30 | HMCIMG ---
HAND 2+VWS LT LIMITED CLINICAL HISTORY: fall ,pain COMPARISON: None TECHNIQUE: AP lateral and oblique images were obtained. FINDINGS: No obvious fracture or dislocation. No joint effusion. The soft tissues appear unremarkable. No radiopaque foreign bodies. IMPRESSION: No acute findings.
--- NOTE | 2024-04-24 14:32 | HMCIMG ---
RIBS UNI RT W PA CHEST 3+ VWS CLINICAL HISTORY: fall ,pain COMPARISON: 04/24/2024 TECHNIQUE: 4 images were obtained. FINDINGS: The bony structures appear intact. There is no identified pneumothorax. There are no lytic or blastic lesions. IMPRESSION: There are no acute findings
--- NOTE | 2024-04-24 14:32 | HMCIMG ---
CHEST 1VW CLINICAL HISTORY: fall ,pain COMPARISON: None TECHNIQUE: Single view of the chest was obtained. FINDINGS: Lungs are clear. The cardiac size and mediastinum are unremarkable. The bony structures are within normal limits. IMPRESSION: No acute cardiopulmonary process identified.
[2024-04-24 14:40] VITALS: BP 136/90; PULSE 68; RESP 18; TEMP 97.8; O2SAT 97
[2024-04-24] MEDS ORDERED: ACET-66 PO (14:47)
[2024-04-24] MEDS ORDERED: IBUP-2076 PO (14:47)
== END 2024-04-24 15:00 | disposition home or self-care (01) ==
LOC: EDH 11:17
DX: S00.83XA Contusion of other part of head, initial encounter (principal); G47.33 Obstructive sleep apnea (adult) (pediatric); M79.602 Pain in left arm; J44.9 Chronic obstructive pulmonary disease, unspecified; Z79.52 Long term (current) use of systemic steroids; Z79.899 Other long term (current) drug therapy; Z88.0 Allergy status to penicillin; W06.XXXA Fall from bed, initial encounter; Y93.89 Activity, other specified; Y92.89 Other specified places as the place of occurrence of the external cause; Y99.8 Other external cause status
CPT/HCPCS: 70450; 70486; 71045; 71101; 73070; 73090; 73100; 73120; 99284